=== PATIENT | female | born 1980 | race Caucasian/White ===

== ENCOUNTER 2021-05-04 16:43 | Emergency (ER) | payer OTHER, SELFPAY ==
--- NOTE | ~2021-05-04 | CT_ITS ---
EXAMINATION: CT thoracic lumbar wo con DATE: 05/04/2021 19:26 INDICATION: Back pain, paresthesia TECHNIQUE: Computed tomography (CT) of the thoracic and lumbar spine was performed without intravenou s contrast. Automated exposure control and iterative reconstruction technique were employed. Exam dos e: 1482.35 mGy-cm total exam DLP. COMPARISON: None FINDINGS: Mild dextroscoliosis of the thoracic spine. Normal alignment of the thoracic spine. No thor acic spine fracture or bone destruction. There is mild levoscoliosis of the lumbar spine. No fracture or bone destruction, spondylolysis or spondylolisthesis. Lumbar and lumbosacral interspac es are well preserved. Bilateral nephrocalcinosis of the kidneys. IMPRESSION: Mild scoliosis of the thoracic and lumbar spine Bilateral nephrocalcinosis Reviewed, dictated and finalized at [facility]. Reviewed, dictated and finalized at [facility]. 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
[2021-05-04 16:54] VITALS: BP 148/90; PULSE 77; RESP 18; TEMP 37.5; O2SAT 100
--- NOTE | 2021-05-04 18:47 | ED.BACK ---
HPI - Back Pain/Injury General Chief Complaint: Back Pain/Injury Stated Complaint: low back pain Time Seen by Provider: 05/04/21 18:36 Source: patient Mode of arrival: ambulatory Limitations: no limitations History of Present Illness HPI Narrative: This is a 40 year old female that presents to the ER for low back pain present over the last couple of days. Reports chronic mid back pain. Reports no known injury or trauma. Reports over the last couple of days she has had pain in the low back which is new for her which prompted her to be seen. She reports she has had paresthesias in her right arm for about a year. She has not been seen for her back pain before. Denies fever, saddle anesthesia, or bowel/bladder incontinence. Related Data Home Medications Medication Instructions Recorded Confirmed atenolol 25 mg PO BID 05/04/21 hydralazine 50 mg PO DAILY 05/04/21 05/04/21 Allergies Allergy/AdvReac Type Severity Reaction Status Date / Time latex Allergy Unknown Rash Verified 05/04/21 19:04 nicotine AdvReac Mild Rash=Patch Verified 05/04/21 19:04 Review of Systems Review of Systems: CONSTITUTIONAL: Denies fever SKIN: Denies rash MUSCULOSKELETAL: Reports back pain, joint pain, and myalgia. NEUROLOGIC: Denies numbness, or weakness. All systems reviewed & are unremarkable except as noted in HPI and below PMFSH Past Medical History Medical History (Updated 05/04/21 @ 20:22 by Marley Duke PA-C) History of hypertension Social History Social History (Updated 05/04/21 @ 18:50 by Marley Duke PA-C) Substance use: never Exam Narrative: GENERAL: Well-appearing, well-nourished, and in no acute distress. HEAD: Normocephalic, atraumatic. EYES: EOMI. CHEST: Clear to auscultation. No respiratory distress. No wheezes rales or rhonchi HEART: Regular rate and rhythm. No murmur heard. Normal peripheral pulses. BACK: No midline thoracic or lumbar spine tenderness EXTREMITIES: Normal range of motion. No edema. Strength equal in bilateral upper and lower extremities (5/5) SKIN: Warm, dry, no rash. NEURO: No focal deficits. Alert and oriented x3. Normal patellar reflexes bilaterally PSYCH: Normal mood and affect Course Vital Signs Vital signs: Vital Signs Temperature 99.5 F 05/04/21 16:54 Pulse Rate 77 05/04/21 16:54 Respiratory Rate 18 05/04/21 16:54 Blood Pressure 148/90 H 05/04/21 16:54 Pulse Oximetry 100 05/04/21 16:54 Temperature 99.5 F 05/04/21 16:54 Pulse Rate 77 05/04/21 16:54 Respiratory Rate 18 05/04/21 16:54 Blood Pressure 148/90 H 05/04/21 16:54 Pulse Oximetry 100 05/04/21 16:54 MDM - Back Pain/Injury MDM Narrative Medical decision making narrative: Patient presents to the ER for chronic mid back pain and new low back pain. No known injuries or trauma. Patient is neurologically intact. CT scan of the thoracic and lumbar spine shows mild scoliosis. No acute findings. Patient was updated on case findings. Reports improvement with Tylenol and Toradol. Will be given muscle relaxer as well as needed for pain. She was instructed to have follow-up with a primary care doctor as well as orthopedics. She was given warnings to return to the ER Imaging Data Radiologist's impression: ITS Impressions Thoracic/Lumbar Spine CT 05/04/21 19:50 IMPRESSION: Mild scoliosis of the thoracic and lumbar spine Bilateral nephrocalcinosis Critical Care Time Critical Care Time Critical Care Time: No Discharge Plan Discharge Clinical Impression: Back pain Qualifiers: Back pain location: low back pain Chronicity: acute Back pain laterality: midline Sciatica presence: without sciatica Qualified Code(s): M54.50 - Low back pain, unspecified Patient Disposition: Home, Self-Care Condition: Stable Instructions: Back Pain (ED) Additional Instructions: Return to the ER if you experience weakness, numbness, bowel/bladder incontinence, or any other symp
[2021-05-04] MEDS: ACETAMINOPHEN 500 MG TABLET 1000 MG PO (18:53)
[2021-05-04] MEDS: KETOROLAC (*BKC) 60 MG/2 ML VIAL IM (18:57)
--- NOTE | 2021-05-04 19:01 | PC.NURSE ---
patient states that she had a tubal ligation and can no longer have children. refuses test. PA aware
[2021-05-04 20:28] VITALS: BP 120/80; PULSE 68; RESP 18; TEMP 36.9; O2SAT 98
== END 2021-05-04 20:34 | disposition home or self-care (01) ==
PROVIDERS: Emergency Provider Family Medicine
DX: M54.50 Low back pain, unspecified (principal); I10 Essential (primary) hypertension; E83.59 Other disorders of calcium metabolism; N29 Other disorders of kidney and ureter in diseases classified elsewhere; M41.9 Scoliosis, unspecified
CPT/HCPCS: 72128; 72131; 96372; 99284; A9270; J1885

== ENCOUNTER 2022-02-04 15:29 | Emergency (ER) | payer OTHER, SELFPAY ==
--- NOTE | ~2022-02-04 | XR_ITS ---
EXAM: XR knee LT min 4V DATE: 02/04/2022 17:10 HISTORY: fell down stairs, landed on knee, unable to bend . COMPARISON: None available. FINDINGS: Decreased mineralization. Cortical irregularity along the anterior and medial aspect of th e medial femoral condyle and patellar groove. High positioned patella. No lytic or blastic lesion. Tr icompartmental osteoarthritic change, moderate in the medial compartment. No erosion or periosteal ch harsh. Soft tissue thickening and stranding over the patellar tendon. Moderate volume joint fluid. IMPRESSION: Impaction fracture versus fracture from possible patellar dislocation (now relocated). At least partial thickness patellar tendon injury is suspected. Moderate volume joint effusion. Reviewed, dictated and finalized at [facility]. IMPRESSION: Impaction fracture versus fracture from possible patellar dislocati on (now relocated). At least partial thickness patellar tendon injury is suspec sincere. Moderate volume joint effusion.
[2022-02-04 16:55] VITALS: BP 134/97; PULSE 88; RESP 16; TEMP 36.3; O2SAT 100
--- NOTE | 2022-02-04 18:29 | ED.LOWEXIN ---
HPI - Extremity Injury (Lower) General Chief Complaint: Extremity Injury, Lower Stated Complaint: Fall Injury/Left Leg Injury Time Seen by Provider: 02/04/22 18:15 Source: patient, RN notes reviewed and old records reviewed Mode of arrival: wheelchair Limitations: no limitations History of Present Illness HPI Narrative: 41 year old female who presets to express care with complaints of left knee pain after falling down 7 carpeted steps last night while carrying her her child. Patient states that left leg went behind her and now her left knee is swollen and she has difficulty applying weight to her left leg and increased pain with movement of left knee. MD complaint: knee injury (left) Onset (ago): hour(s) (last night about 0200) Injury: Left: knee Type of Injury: other (fall) Treatments prior to arrival: cold therapy and other (tylenol) Related Data Home Medications Medication Instructions Recorded Confirmed atenolol 25 mg tablet 25 mg PO BID 05/04/21 02/09/22 cholecalciferol (vitamin D3) 10 10 mcg PO DAILY 02/04/22 02/09/22 mcg (400 unit) tablet (Vitamin D3) sertraline 25 mg tablet 50 mg PO DAILY 02/04/22 02/09/22 Allergies Allergy/AdvReac Type Severity Reaction Status Date / Time latex Allergy Unknown Rash Verified 02/09/22 09:55 nicotine AdvReac Mild Rash=Patch Verified 02/09/22 09:55 Review of Systems Review of Systems: CONSTITUTIONAL: Denies fever, chills, or sweats. CARDIOVASCULAR: Denies chest pain, palpitations, or edema. RESPIRATORY: Denies cough or dyspnea. SKIN: Denies rash or itching. Denies laceration or abrasions MUSCULOSKELETAL: Reports pain AND SWELLING TO LEFT KNEE and inability to bear weight NEUROLOGIC: Denies numbness, or weakness. All systems reviewed & are unremarkable except as noted in HPI and below [facility] Past Medical History Medical History (Updated 02/11/22 @ 11:21 by Carol Mcdaniel NP) Anxiety and depression History of hypertension Knee pain, acute Left knee injury Social History Social History Smoking status: Never smoker Alcohol intake: current Substance use type: does not use Living arrangements: with family Gender identity (if verbalized by the patient): Female Comments At time of signature, agree with nursing past medical, surgical, social and family history. There is no relevant family history pertinent to the presenting complaint Exam Narrative: GENERAL: Well-appearing, well-nourished, and in no acute distress. HEAD: Normocephalic, atraumatic. EYES: PERRLA, conjunctivae clear NECK: Supple. CHEST: Speaks in full sentences. No respiratory distress.SAO2 100% on room air HEART: Regular rate and rhythm. Normal and equal peripheral pulses. EXTREMITIES:Left knee has decreased strength and normal sensation, decreased range of motion positive edema no ecchymosis. decreased strength with impaired flexion and extension. Normal sensation with sensitivity to light touch and pain. point tenderness.? ?No open wounds, no skin tenting, no devitalized tissue or atrophy, no trophic changes, no obvious deformity, alignment normal, nearby joints and structures intact. Distal pulses palpable and equal bilaterally, skin warm, dry, pink. Capillary refill less than 3 seconds. Course Course Emergency Course: Patient is aware of diagnosis, understands and agrees to treatment plan. Anticipatory guidance given. Patient agrees to follow-up as directed and is aware of reasons to seek care at the emergency department. Portions of this record may have been created with voice recognition software Level of Care: Express Care Visit Vital Signs Vital signs: Vital Signs Temperature 36.3 C L 02/04/22 16:55 Pulse Rate 88 02/04/22 16:55 Respiratory Rate 16 02/04/22 16:55 Blood Pressure 134/97 H 02/04/22 16:55 Pulse Oximetry 100 02/04/22 16:55 Oxygen Delivery Room Air 02/04/22 16:55 Temperature 36.
== END 2022-02-04 18:53 | disposition home or self-care (01) ==
PROVIDERS: Emergency Provider Registered Nurse
DX: M25.562 Pain in left knee (principal); I10 Essential (primary) hypertension
CPT/HCPCS: 73564; 99213; G0463; L1830

== ENCOUNTER 2022-03-03 14:01 | Outpatient (CLI) | payer OTHER, SELFPAY ==
--- NOTE | ~2022-03-03 | MR_ITS ---
EXAMINATION: MR knee LT wo con DATE: 03/03/2022 14:50 INDICATION: Left knee injury. TECHNIQUE: Magnetic resonance imaging (MRI) of the left knee was performed without intravenous contra st. COMPARISON: Left knee radiographs 02/04/2022 FINDINGS: Medial compartment: Medial meniscus is normal. Medial compartment cartilage is normal. Lateral compartment: Lateral meniscus is normal. Lateral compartment cartilage is normal. Patellofemoral compartment: There is deep partial thickness cartilage loss of patellar lateral facet distally with mild subchondr al edema-like marrow signal intensity. There is shallow partial-thickness cartilage loss of trochlea. Osteophytes are noted. Ligaments and tendons: The anterior cruciate ligament is normal. There is a tear of posterior cruciate ligament characterize d by thickening and increased signal intensity with discontinuous fibers. There is a partial tear of medial collateral ligament with surrounding edema. There are changes of low-grade sprain of fibular c ollateral ligament characterized by increased signal intensity proximally. There is mild patellar ten dinopathy. Fluid: There is a moderate-sized knee joint effusion. There is mild superficial infrapatellar bursitis. Osseous/other: There is edema-like marrow signal intensity involving posterolateral aspect of lateral femoral condyl e. There is edema-like marrow signal intensity involving medial aspect of medial tibial condyle. Thes e findings are consistent with contusions. IMPRESSION: 1. Tear of posterior cruciate ligament. 2. Moderate chondrosis of patellofemoral compartment. 3. Moderate-sized knee joint effusion. 4. Partial tear of medial collateral ligament. 5. Contusions involving the posterolateral aspect of lateral femoral condyle and medial aspect of med ial tibial condyle. Reviewed, dictated and finalized at location [facility]. [employer] IMPRESSION: 1. Tear of posterior cruciate ligament. 2. Moderate chondrosis of patellofemoral compartment. 3. Moderate-sized knee joint effusion. 4. Partial tear of medial collateral ligament. 5. Contusions involving the posterolateral aspect of lateral femoral condyle an d medial aspect of medial tibial condyle.
== END 2022-03-03 14:02 | disposition home or self-care (01) ==
LOC: ANHIMG 14:05
PROVIDERS: Visit Provider Orthopaedic Surgery
DX: S89.92XA Unspecified injury of left lower leg, initial encounter (principal); S83.522A Sprain of posterior cruciate ligament of left knee, initial encounter; M22.2X2 Patellofemoral disorders, left knee; M25.462 Effusion, left knee; S83.412A Sprain of medial collateral ligament of left knee, initial encounter; S80.02XA Contusion of left knee, initial encounter
CPT/HCPCS: 73721

== ENCOUNTER 2022-07-31 20:06 | Emergency (ER) | payer OTHER, SELFPAY ==
--- NOTE | ~2022-07-31 | CT_ITS ---
EXAMINATION: CT abdomen pelvis w con DATE: 07/31/2022 22:30 INDICATION: rule out obstruction TECHNIQUE: Computed tomography (CT) of the abdomen and pelvis was performed with 100 mL Omnipaque-350 intravenous contrast. Automated exposure control and iterative reconstruction technique were employe d. The dose-length product was 972.26 mGy-cm. COMPARISON: None. FINDINGS: Lower thorax: Mild coronary artery calcification. Liver: Normal. Biliary/Gallbladder: Gallbladder is normal. No bile duct dilation. Pancreas: No mass or duct dilation. Spleen: Normal. Adrenals:No mass. Kidneys: 6 mm calcification at the left UPJ. Mild left pelviectasis and caliectasis. Bilateral medull fatmata nephrocalcinosis. Multiple nonobstructing punctate calcifications projecting over the bilateral r enal calyces. Simple bilateral midpole cysts. Several right renal hypodensities that are too small to characterize but also most likely represent cysts. GI tract: Mild distal esophageal and gastric wall edema, as can be seen with mild esophagitis/gastrit is. No small or large bowel dilation. Normal appendix. Diverticulosis without diverticulitis. Mesentery/Peritoneum: No ascites, mass, or free air. Retroperitoneum: No mass. Pelvis: Retroverted uterus. Empty urinary bladder. Normal bilateral ovaries. Soft Tissues: Soft tissues and body wall unremarkable. Bones: No acute osseous finding. IMPRESSION: 6 mm left UPJ stone causing mild obstructive uropathy. Reviewed, dictated and finalized at [facility].
[2022-07-31 20:28] VITALS: BP 170/101; PULSE 98; RESP 20; TEMP 36.7; O2SAT 99
[2022-07-31 21:36] VITALS: BP 167/100; PULSE 94; RESP 22; O2SAT 100
[2022-07-31 21:54] LABS: Appearance Urine Cloudy (Clear); Bacteria Urine 1+ /hpf; Bilirubin Urine Negative (Negative); Blood Urine 3+ (Negative); Color Urine Dark Yellow (Yellow); Glucose Urine UA Negative (Negative); Ketones Urine Negative (Negative); Leukocyte Esterase Ur 2+ LEU/UL (Negative); Nitrate Urine Negative (Negative); Non Pathogenic Casts 0-2; Protein Urine 1+ mg/dL (Negative); RBC Urine >100 /hpf (0-2); Specific Grav Ur 1.014 (1.001-1.035); Squamous Epithelial Cell Urine Occasional /hpf (Few); Urobilinogen Urine 0.2 mg/dL (<2.0); WBC Urine 21-50 /hpf; pH Urine 6.5 (5.0-9.0)
[2022-07-31 21:58] LABS: Add Urine Microscopic? YES; Basophils Absolute Auto 0.1 K/mm3 (0.0-0.1); Basophils Percent Auto 0.7 % (0.2-1.2); Eosinophils Absolute Auto 0.1 K/mm3 (0-0.3); Hematocrit 34.8 % (37.0-47.0); Hemoglobin 10.6 g/dL (12.0-15.0); Immature Granulocyte Absolute 0.03 K/mm3 (0.00-0.031); Immature Granulocyte Percent A 0.3 % (0-0.5); Lymphocytes Absolute Auto 1.69 K/mm3 (0.9-3.2); Lymphocytes Percent Auto 15.8 % (18.3-44.2); Mean Corpuscular HGB Conc 30.5 g/dl (32-36); Mean Corpuscular Hemoglobin 23.5 pg (26-34); Mean Corpuscular Volume 77.2 fl (80-100); Mean Platelet Volume 10.5 fl (7.4-10.4); Monocytes Absolute Auto 1.2 K/mm3 (0.1-0.6); Monocytes Percent Auto 11.2 % (2.6-8.5); Neutrophils Absolute Auto 7.6 K/mm3 (1.3-6.7); Platelet Count Result 374 k/mm3 (150-375); Red Blood Count 4.51 M/mm3 (4.2-5.4); Red Cell Distribution Width 16.2 % (11.5-14.5); White Blood Count 10.7 K/mm3 (4.5-10.0)
[2022-07-31 22:00] LABS: Alanine Aminotransferase 20 U/L (6-35); Albumin Level 4.8 g/dL (3.5-5.1); Alkaline Phosphatase 74 U/L (38-126); Anion Gap 10 mmol/L (8-16); Aspartate Amino Transferase 31 U/L (14-36); Bilirubin,Total 0.6 mg/dL (0.2-1.3); Blood Urea Nitrogen 16 mg/dL (7-17); Calcium 9.1 mg/dL (8.4-10.2); Carbon Dioxide 23 mmol/L (22-30); Chloride 106 mmol/L (98-107); Estimated CRCL calculation 68 ml/min; Estimated Glomerular Filt Rate > 60; Glucose 96 mg/dL (65-110); Lipase 45 U/L (23-300); Potassium 3.9 mmol/L (3.4-5.0); Sodium 139 mmol/L (137-145)
[2022-07-31 22:16] VITALS: BP 170/113; PULSE 99; RESP 20; O2SAT 100
--- NOTE | 2022-07-31 22:18 | ED.ABDPAIN ---
HPI - Abdominal Pain General Chief Complaint: Abdominal Pain Stated Complaint: abd pain Time Seen by Provider: 07/31/22 22:08 Source: patient Mode of arrival: ambulatory Limitations: no limitations History of Present Illness HPI narrative: This is a 42-year-old female with PMH of who presents to the ED with chief complaint of left-sided abdominal pain onset x1 day. Reports pain is in the left upper quadrant and shoots backwards into the left flank. Also reports some radiating pain down into the left lower quadrant. Reports hematuria and frequency. States she has had 5 episodes of vomiting today. States she is still nauseous. States her last bowel movement was 5 days ago which is abnormal for her. Denies fevers, chills, chest pain, shortness of breath, cough. Related Data Home Medications Medication Instructions Recorded Confirmed atenolol 25 mg tablet 25 mg PO BID 05/04/21 03/06/22 cholecalciferol (vitamin D3) 10 10 mcg PO DAILY 02/04/22 03/06/22 mcg (400 unit) tablet (Vitamin D3) sertraline 25 mg tablet 50 mg PO DAILY 02/04/22 03/06/22 Allergies Allergy/AdvReac Type Severity Reaction Status Date / Time latex Allergy Unknown Rash Verified 07/31/22 21:49 nicotine AdvReac Mild Rash=Patch Verified 07/31/22 21:49 Review of Systems Review of Systems: CONSTITUTIONAL: Denies fever, chills, or sweats. EYES: Denies visual changes, redness, or discharge. ENT: Denies rhinorrhea, congestion, sore throat, or otalgia. CARDIOVASCULAR: Denies chest pain, palpitations, or edema. RESPIRATORY: Denies cough or dyspnea. GASTROINTESTINAL: See HPI GENITOURINARY: Denies dysuria or hematuria. SKIN: Denies rash or itching. MUSCULOSKELETAL: Denies back pain, joint pain, or myalgia. NEUROLOGIC: Denies headache, numbness, dizziness, or weakness. PSYCHIATRIC: Denies anxiety or depression. [facility] Past Medical History Medical History (Updated 08/01/22 @ 00:09 by Abhi Little PA-C) Anxiety and depression Calculus of proximal left ureter Chronic headaches Claustrophobia History of hypertension IBS (irritable bowel syndrome) Knee pain, acute Left knee injury Tachycardia Surgical History Surgical History H/O section Family History Family History Other Arthritis Asthma Cerebrovascular accident Depression Diabetes mellitus HLD (hyperlipidemia) Heart disease Hypertension Social History Social History Smoking status: Former smoker Tobacco type: cigarettes Smoking end date: 06/10/21 Alcohol intake: never Substance use type: does not use Current Housing: Decline to Answer Concerned About Future Housing: Decline to Answer Difficulty Paying Gas/Electric Bills: Decline to Answer Difficulty Paying for Meds: Decline to Answer Currently Unemployed: Decline to Answer Education: Decline to Answer Difficulty w/ Childcare or Family Care: Decline to Answer Living arrangements: with family Occupation/Education: occupation Gender identity (if verbalized by the patient): Female Exam Narrative: GENERAL: Writhing in bed, appears in pain. HEAD: Normocephalic, atraumatic. EYES: PERRLA and EOMI. ENT: Nares clear, no rhinorrhea or epistaxis. Mucous membranes moist. Oropharynx without tonsillar hypertrophy exudate or other lesions. NECK: Supple. No adenopathy or masses. CHEST: No respiratory distress. Clear to auscultation. No wheezes rales or rhonchi HEART: Regular rate and rhythm. No murmur heard. Normal peripheral pulses. ABDOMEN: Left flank tenderness present. Mild left lower quadrant tenderness present. Soft, nondistended, normal active bowel sounds. Negative peritoneal signs. EXTREMITIES: Normal range of motion. No edema. SKIN: Warm, dry, no rash. NEURO: Alert and oriented x3. No focal deficits. PSYCH: Normal mood
[2022-07-31 22:38] VITALS: PULSE 98; RESP 20; O2SAT 100
[2022-07-31] MEDS: ONDANSETRON INJ 4 MG/2 ML VIAL IV PUSH (22:40)
[2022-07-31] MEDS: SODIUM CHLORIDE 0.9% IV 1,000 ML 999 ML IV CONT (22:40)
[2022-07-31] MEDS: MORPHINE SULFATE (*CRX) 4 MG/ML INJ IV PUSH (22:41)
[2022-07-31 22:52] VITALS: PULSE 99; RESP 17; O2SAT 99
--- NOTE | 2022-07-31 23:11 | PC.NURSE ---
Report given to ZACKERY Persaud at this time.
--- NOTE | 2022-07-31 23:17 | PC.NURSE ---
Report given to ZACKERY Persaud at this time.
[2022-08-01] MEDS: ONDANSETRON INJ 4 MG/2 ML VIAL IV PUSH (00:10)
[2022-08-01 00:38] VITALS: BP 144/95; PULSE 94; RESP 19; O2SAT 99
== END 2022-08-01 00:40 | disposition home or self-care (01) ==
PROVIDERS: Emergency Provider Physician Assistant
DX: N20.1 Calculus of ureter (principal); F41.9 Anxiety disorder, unspecified; F32.A Depression, unspecified; I10 Essential (primary) hypertension
CPT/HCPCS: 36415; 74177; 80053; 81001; 81025; 83690; 85025; 87086; 96361; 96374; 96375; 99284; J0131; J2270; J2405; J7030; Q9967

== ENCOUNTER 2022-08-18 20:09 | Inpatient (IN) | payer OTHER, SELFPAY ==
--- NOTE | ~2022-08-18 | CT_ITS ---
EXAMINATION: CT abdomen pelvis w con DATE: 08/18/2022 21:50 INDICATION: Generalized abdominal pain. TECHNIQUE: Computed tomography (CT) of the abdomen and pelvis was performed with 100 mL Omnipaque 350 intravenous contrast. Automated exposure control and iterative reconstruction technique were employe d. The dose-length product was 906.70 mGy-cm. COMPARISON: CT abdomen and pelvis 07/31/2022, thoracic spine CT 05/04/2021 FINDINGS: The visualized portions of the lung bases are clear without pneumonia or pleural effusion. The heart size is normal. There are coronary artery calcifications. No pericardial effusion. There is a chronic 4.2 x 3.2 cm cyst posterior to the heart on the left abutting the esophagus, which may be a pericardial cyst or foregut duplication cyst. The liver is normal. The gallbladder is distended, wh ich may be secondary to fasting. The spleen, pancreas, and adrenal glands are normal. There are cysts in the kidneys measuring up to 1.5 cm on the left. There is bilateral medullary nephrocalcinosis. Th ere are stones in the kidneys measuring up to 5 mm on the right. There is mild left hydronephrosis. T here are 4 mm and 3 mm stones in proximal left ureter. There is a 2.5 cm dominant follicle in left ov fatmata. There is fat stranding around a diverticulum of sigmoid colon, consistent with diverticulitis. T here are no dilated loops of bowel. The appendix is normal. There are no pathologically enlarged lymp h nodes. There is no free intraperitoneal fluid. There is mild thoracic and lumbar spondylosis. IMPRESSION: 1. Sigmoid diverticulitis. No perforation or abscess. 2. 4 mm and 3 mm stones in proximal left ureter with mild left hydronephrosis. 3. Bilateral medullary nephrocalcinosis and bilateral nonobstructing kidney stones. Reviewed, dictated and finalized at location E. IMPRESSION: 1. Sigmoid diverticulitis. No perforation or abscess. 2. 4 mm and 3 mm stones in proximal left ureter with mild left hydronephrosis. 3. Bilateral medullary nephrocalcinosis and bilateral nonobstructing kidney sto ed.
--- NOTE | ~2022-08-18 | XR_ITS ---
EXAMINATION: XR stent kub - surgery DATE: 08/19/2022 10:03 INDICATION: Left ureteral stent placement TECHNIQUE: Fluoroscopic images from a left ureteral stent placement are submitted for review. 32 seco nds of fluoroscopy time. FINDINGS: There is a left double-J internal ureteral stent projecting in expected position, with proximal Lee loop at the level of the renal pelvis and distal loop not visualized. IMPRESSION: 1. Left internal ureteral stent placement. Please refer to real-time procedural findings for detail s. Reviewed, dictated and finalized at location A. IMPRESSION: 1. Left internal ureteral stent placement. Please refer to real-time procedur al findings for details.
--- NOTE | ~2022-08-18 | XR_ITS ---
EXAMINATION: XR chest 1V portable Exam Date/Time: 08/20/2022 14:45 CDT HISTORY: shortness of breath Comparison: 09/01/2018. RESULT: Lines, tubes, and devices: None. Lungs and pleura: Lordotic positioning. Streaky bibasilar opacities, likely atelectasis. Cardiomediastinal silhouette: Stable. Other: No acute osseous or upper abdominal finding. IMPRESSION: No acute cardiopulmonary process. Reviewed, dictated and finalized at location K.
[2022-08-18 20:31] VITALS: BP 142/90; PULSE 107; RESP 22; TEMP 37.1; O2SAT 100
[2022-08-18 20:48] VITALS: BP 164/107; PULSE 110; RESP 24; TEMP 37.3; O2SAT 99
--- NOTE | 2022-08-18 21:15 | ED.ABDPAIN ---
HPI - Abdominal Pain General Chief Complaint: Abdominal Pain <RASHAWN Solis Last Filed: 08/19/22 04:12> Stated Complaint: left flank and leg pain <RASHAWN Solis Last Filed: 08/19/22 04:12> Time Seen by Provider: 08/18/22 20:52 <Ximena Clarke PA-C - Last Filed: 08/19/22 04:12> History of Present Illness HPI narrative: 42-year-old female with a history of ureterolithiasis reports for evaluation of bilateral flank pain and generalized abdominal pain, worse on the left side for 2 weeks, worsening today. Patient was evaluated in the ED on 08/01 and diagnosed with a 6 mm left UPJ stone causing mild obstructive uropathy. The patient was discharged home with Flomax, Zofran and cefdinir for potentially infected urine, cultures were negative. Patient was advised to follow-up with urology, however she was unable to make an appointment because was told they do not accept her insurance. She states she has been drinking plenty of fluids along with cranberry juice since. States today her pain became much worse, she developed a fever of 103 with associated nausea. She denies vomiting, diarrhea, hematuria or dysuria. <RASHAWN Solis Last Filed: 08/19/22 04:12> Related Data Home Medications: Home Medications Medication Instructions Recorded Confirmed cholecalciferol (vitamin D3) 10 10 mcg PO DAILY 02/04/22 08/19/22 mcg (400 unit) tablet (Vitamin D3) sertraline 25 mg tablet 50 mg PO DAILY 02/04/22 08/19/22 cyclobenzaprine 10 mg tablet 10 mg PO TID 08/19/22 08/19/22 <RASHAWN Solis Last Filed: 08/19/22 04:12> Allergies/Adverse Reactions: Allergies Allergy/AdvReac Type Severity Reaction Status Date / Time latex Allergy Unknown Rash Verified 07/31/22 21:49 nicotine AdvReac Mild Rash=Patch Verified 07/31/22 21:49 <RASHAWN Solis Last Filed: 08/19/22 04:12> Review of Systems Review of Systems: CONSTITUTIONAL: Denies fever, chills EYES: Denies visual changes, redness, or discharge. ENT: Denies rhinorrhea, congestion, sore throat, or otalgia. CARDIOVASCULAR: Denies chest pain, palpitations, or edema. RESPIRATORY: Denies cough or dyspnea. GASTROINTESTINAL: See HPI GENITOURINARY: See HPI SKIN: Denies rash or itching. MUSCULOSKELETAL: See HPI NEUROLOGIC: Denies headache, numbness, dizziness, or weakness. PSYCHIATRIC: Denies anxiety or depression. <Ximena Clarke PA-C - Last Filed: 08/19/22 04:12> [facility] Past Medical History Medical History: Medical History (Updated 08/21/22 @ 14:49 by MOISES Tyson) Anxiety and depression Calculus of proximal left ureter Chronic headaches Claustrophobia Essential hypertension Irritable bowel syndrome with constipation Ischemic colitis (~2011) Left knee injury Tachycardia Tear of PCL (posterior cruciate ligament) of knee <Ximena Clarke PA-C - Last Filed: 08/19/22 04:12> Surgical History Surgical History: Surgical History H/O section <Ximena Clarke PA-C - Last Filed: 08/19/22 04:12> Family History Family History: Family History Grandparent Arthritis Heart disease Hypertension Mother , At age 52 Cerebrovascular accident, Onset Age: 52 Depression HLD (hyperlipidemia) Alcoholism Father , 72 years old Depression COPD (chronic obstructive pulmonary disease) COVID-19 Other Diabetes mellitus <Ximena Clarke PA-C - Last Filed: 08/19/22 04:12> Social History Social History: Social History Social History: She lives at home with her for younger children. She has 2 children age 20 and 19 and a moved out. She used to smoke a pack of cigarettes per day. She started smoking at age 13 and quit smoking in 2020. She only drinks alcohol about once a yea
[2022-08-18 21:18] LABS: Basophils Absolute Auto 0.1 K/mm3 (0.0-0.1); Basophils Percent Auto 0.4 % (0.2-1.2); Hemoglobin 10.2 g/dL (12.0-15.0); Immature Granulocyte Absolute 0.12 K/mm3 (0.00-0.031); Immature Granulocyte Percent A 0.5 % (0-0.5); Lymphocytes Absolute Auto 1.25 K/mm3 (0.9-3.2); Lymphocytes Percent Auto 5.6 % (18.3-44.2); Mean Corpuscular HGB Conc 30.9 g/dl (32-36); Mean Corpuscular Hemoglobin 23.8 pg (26-34); Mean Corpuscular Volume 77.1 fl (80-100); Monocytes Absolute Auto 1.9 K/mm3 (0.1-0.6); Monocytes Percent Auto 8.7 % (2.6-8.5); Neutrophils Absolute Auto 18.8 K/mm3 (1.3-6.7); Neutrophils Percent Auto 84.8 % (45.5-73.1); Platelet Count Result 337 k/mm3 (150-375); Red Blood Count 4.28 M/mm3 (4.2-5.4); Red Cell Distribution Width 16.9 % (11.5-14.5); White Blood Count 22.2 K/mm3 (4.5-10.0)
[2022-08-18 21:21] LABS: Appearance Urine Clear (Clear); Bacteria Urine None Seen /hpf; Bilirubin Urine Negative (Negative); Color Urine Yellow (Yellow); Glucose Urine UA Negative (Negative); Ketones Urine Negative (Negative); Leukocyte Esterase Ur Trace LEU/UL (Negative); Nitrate Urine Negative (Negative); Non Pathogenic Casts 0-2; Protein Urine Negative (Negative); Specific Grav Ur 1.012 (1.001-1.035); Squamous Epithelial Cell Urine None seen /hpf (Few); Urobilinogen Urine 0.2 mg/dL (<2.0); pH Urine 6.5 (5.0-9.0)
[2022-08-18 21:25] LABS: Add Urine Microscopic? YES
[2022-08-18] MEDS: SODIUM CHLORIDE 0.9% IV 1,000 ML 999 ML IV CONT ×2 (21:26→22:41)
[2022-08-18] MEDS: ONDANSETRON INJ 4 MG/2 ML VIAL IV PUSH (21:28)
[2022-08-18] MEDS: MORPHINE SULFATE (*CRX) 4 MG/ML INJ IV PUSH (21:29)
[2022-08-18 21:36] LABS: Albumin Level 4.8 g/dL (3.5-5.1); Alkaline Phosphatase 65 U/L (38-126); Anion Gap 12 mmol/L (8-16); Aspartate Amino Transferase 32 U/L (14-36); Bilirubin,Total 0.6 mg/dL (0.2-1.3); Blood Urea Nitrogen 14 mg/dL (7-17); Calcium 8.9 mg/dL (8.4-10.2); Carbon Dioxide 19 mmol/L (22-30); Chloride 103 mmol/L (98-107); Estimated Glomerular Filt Rate > 60; Glucose 130 mg/dL (65-110); Lipase 30 U/L (23-300); Potassium 4.2 mmol/L (3.4-5.0); Sodium 134 mmol/L (137-145)
[2022-08-18 21:44] LABS: Lactic Acid Reflex 2.9 mmol/L (0.7-2.0)
[2022-08-18 21:47] LABS: Alanine Aminotransferase 38 U/L (6-35)
[2022-08-18] MEDS: PIPERACILLN/TAZ 3.375GM/NS50ML 3.375 GM/50 ML BAG IVPB (22:25)
[2022-08-18] MEDS: HYDROmorphone HCL INJ (*CRX) 1 MG/ML SYR 0.5 MG IV PUSH (22:42)
[2022-08-18 22:45] VITALS: BP 133/74; PULSE 107; RESP 20; O2SAT 100
[2022-08-18 23:09] VITALS: BP 116/63; PULSE 109; RESP 17; O2SAT 96
[2022-08-19] VITALS (23 sets, daily range): BP systolic 102–137; BP diastolic 60–85; PULSE 80–118; RESP 14–20; TEMP 36.4–37.2; O2SAT 93–100; BMI 33.3
[2022-08-19] MEDS: ACETAMINOPHEN 325 MG TABLET 650 MG PO (00:08)
--- NOTE | 2022-08-19 00:19 | ADMGEN ---
This patient, Jannette John, was admitted to 2 Medical Room 240-. Patient/family oriented to hospital policies and general routines including ID bracelet, bed and alarms, visiting hours, pain management, procedures, bathroom and other care routines, personal items, smoking policy, room service/diet, and visiting hours. Information on how to activate the Rapid Response Team has been discussed. Patient/Family are encouraged to report perceived risks to care and to ask questions if they do not understand what they are told or what they should do.
[2022-08-19 00:33] LABS: Reflex Lactic Acid Yes or No Add Lactic
[2022-08-19] MEDS: SODIUM CHLORIDE 0.9% IV 1,000 ML 999 ML IV CONT (00:53)
[2022-08-19] MEDS: ONDANSETRON INJ 4 MG/2 ML VIAL IV PUSH ×4 (00:55→20:04)
[2022-08-19] MEDS: HYDROmorphone HCL INJ (*CRX) 1 MG/ML SYR IV PUSH ×7 (00:56→23:15)
[2022-08-19 01:23] LABS: Lactic Acid 0.9 mmol/L (0.7-2.0)
[2022-08-19] MEDS: SODIUM CHLORIDE 0.9% IV 1,000 ML 150 ML IV CONT (02:46)
--- NOTE | 2022-08-19 03:53 | PM.IMHP ---
H&P: HPI History of Present Illness Date/Time: 08/19/22 03:53 Chief Complaint: Abdominal pain Narrative: 42-year-old female with a past medical history of obesity, hypertension, kidney stones and asthma who presented to the ER with abdominal pain. The patient had originally presented to the ER on 07/31/2022 due to left-sided abdominal pain and radiated up to left upper quadrant and left flank. The pain was sharp stabbing and twisting in nature. She had a CT of the abdomen pelvis without contrast at that time which demonstrated 6 mm left UPJ stone causing obstructive uropathy. She was discharged on antibiotics, Flomax and [place]. She was unable to follow-up with Urology as they do not accept her insurance. She reports that her symptoms did give better while on the medications. She did not need to take all of the [place] and she had some of it left. However she still was having some decreased appetite, and nausea. She was still have occasional episodes of left upper quadrant pain radiating to her back. Several days ago she did have couple episodes of vomiting. She denies any hematemesis. Then 2 days ago she began having discomfort in her bladder right after she would finish voiding. She felt as if her bladder was cramping. However she denied her usual symptoms she would get with a UTI such as, urinary frequency urgency or dysuria. She did have significant left CVA tenderness on exam in the ER she was still drinking plenty of fluids and cranberry juice. She reported that on the she spiked a fever to 103. She had associated worsening nausea. She also had developed new left lower quadrant abdominal. She reports that that pain is more of a dull achy sensation. It is worse with palpation of the left lower abdomen. It is constant in nature. It is severe in intensity. She has also had acute worsening of her left upper quadrant pain. She reports that the pain in the left lower quadrant also radiates down into her anterior thigh. She reports that she does have chronic irritable bowel disease with constipation and has not had a bowel movement in 4 days. However she also has not been taking her senna Plus. She reports that she has been taking garcia probiotics and fiber which used to work relatively well for but in recent weeks to months this has not been working as well. This is probably worsened due to the fact that patient has been taking [place] on and off for the last couple of weeks. She does report some lightheadedness with standing. She has had some fatigue. She also has history of snoring and falls asleep easily and will fall asleep doing activities. She has never been tested for sleep apnea. She does have a history of ischemic colitis over 10 years ago when she was smoking. These symptoms are different than when she had colitis. When she a colitis she was having rectal bleeding which she denies at this time. Review of Systems Review of Systems: 12 systems were reviewed with pertinent positives and negatives per HPI. Except as documented in the HPI, all other systems were reviewed and are negative. [facility] Past Medical History Medical History (Updated 08/19/22 @ 05:55 by Razia Dean DO) Anxiety and depression Calculus of proximal left ureter Chronic headaches Claustrophobia Essential hypertension Irritable bowel syndrome with constipation Ischemic colitis (~2011) Left knee injury Tachycardia Tear of PCL (posterior cruciate ligament) of knee Surgical History Surgical History H/O section Family History Family History Grandparent Arthritis Heart disease Hypertension Mother , At age 52 Cerebrovascular accident, Onset Age: 52 Depression HLD (hyperlipidemia) Alcoholism Father , 72 years old Depression COPD (chronic obstructive pulmonary disease) COVID-19 Other D
[2022-08-19] MEDS: PIPERACILLN/TAZ 3.375GM/NS50ML 3.375 GM/50 ML BAG IVPB ×3 (05:38→17:09)
[2022-08-19 06:30] LABS: Basophils Percent Auto 0.2 % (0.2-1.2); Eosinophils Percent Auto 0.1 % (0-4.4); Hematocrit 26.6 % (37.0-47.0); Hemoglobin 7.8 g/dL (12.0-15.0); Immature Granulocyte Absolute 0.11 K/mm3 (0.00-0.031); Immature Granulocyte Percent A 0.6 % (0-0.5); Lymphocytes Absolute Auto 1.52 K/mm3 (0.9-3.2); Lymphocytes Percent Auto 8.7 % (18.3-44.2); Mean Corpuscular HGB Conc 29.3 g/dl (32-36); Mean Corpuscular Hemoglobin 23.1 pg (26-34); Mean Corpuscular Volume 78.9 fl (80-100); Mean Platelet Volume 10.8 fl (7.4-10.4); Monocytes Absolute Auto 1.4 K/mm3 (0.1-0.6); Monocytes Percent Auto 8.1 % (2.6-8.5); Neutrophils Absolute Auto 14.5 K/mm3 (1.3-6.7); Neutrophils Percent Auto 82.3 % (45.5-73.1); Platelet Count Result 249 k/mm3 (150-375); Red Blood Count 3.37 M/mm3 (4.2-5.4); Red Cell Distribution Width 16.7 % (11.5-14.5); White Blood Count 17.6 K/mm3 (4.5-10.0)
[2022-08-19 06:51] LABS: Alanine Aminotransferase 17 U/L (6-35); Albumin Level 3.6 g/dL (3.5-5.1); Alkaline Phosphatase 51 U/L (38-126); Anion Gap 7 mmol/L (8-16); Aspartate Amino Transferase 24 U/L (14-36); Bilirubin,Total 0.7 mg/dL (0.2-1.3); Blood Urea Nitrogen 9 mg/dL (7-17); Calcium 7.3 mg/dL (8.4-10.2); Carbon Dioxide 19 mmol/L (22-30); Chloride 108 mmol/L (98-107); Estimated CRCL calculation 94 ml/min; Estimated Glomerular Filt Rate > 60; Glucose 106 mg/dL (65-110); Potassium 3.6 mmol/L (3.4-5.0); Sodium 134 mmol/L (137-145)
[2022-08-19 08:28] LABS: Iron 22 ug/dL (37-170)
--- NOTE | 2022-08-19 08:30 | PM.IMPN ---
Progress Note: A&P Assessment and Plan (1) Sepsis: Qualifiers: Sepsis acute organ dysfunction status: without acute organ dysfunction Sepsis type: sepsis due to unspecified organism Qualified Code(s): A41.9 - Sepsis, unspecified organism Code(s): A41.9 - Sepsis, unspecified organism Status: Acute Assessment and Plan: sepsis criteria with leukocytosis, tachycardia and lactic acidosis. Source of infection acute diverticulitis and possible infected kidney stone UA does appear to be infection Lactic acid 2.9 on admission currently 0.9 NPO for cystoscopy this am Urology consulted Fluids given in the ED Zosyn continued from the ED Blood culture pending Trend labs (2) Hydronephrosis with obstructing calculus: Code(s): N13.2 - Hydronephrosis with renal and ureteral calculous obstruction Status: Acute Assessment and Plan: CT shows stones in the proximal left ureter with mild left hydronephrosis Trend urine output Urology consulted thank you for your help adjust therapy as indicated (3) Sigmoid diverticulitis: Code(s): K57.32 - Diverticulitis of large intestine without perforation or abscess without bleeding Status: Acute Assessment and Plan: CT indicated diverticulitis of the sigmoid colon Zosyn resumed from ED Stable at this time Pain medications on board Continue to trend labs NPO for now, then low fiber diet (4) Snoring: Code(s): R06.83 - Snoring Status: Acute Assessment and Plan: History of snoring, daytime fatigue, excessive daytime sleepiness and morbid obesity More than likely sleep apnea. Outpatient sleep study after discharge (5) Anemia: Qualifiers: Anemia type: unspecified type Qualified Code(s): D64.9 - Anemia, unspecified Code(s): D64.9 - Anemia, unspecified Status: Acute Assessment and Plan: H/H Stable at 7.8/26.6 down from admission of 1.2/33.0 Most likely related to fluids Continue to trend labs Anemia labs iron 22, TIBC 431, % saturation 5, B12 and folate pending add iron supplementation supplement as indicated Plan Patient noted headache will add excedrin Time Spent With Patient Time: 48 minutes Time with patient: Greater than 35 minutes Subjective Date/time seen: 08/19/22829 Interval history: 08/19/22829 Patient is currently lying on her side. Patient states that she still having some pretty significant pain mostly in the left flank wrapped around her abdomen into her bladder area. She currently rates her pain as 6/10 if she moves around and 3/10 she has lay still. She also states that she short of breath mostly related to the pain. She denies any chest pain, nausea, vomiting, diarrhea or constipation. She also stated that her arms are very weak and she has a headache. decrease the fluids due to his today given drop in the H&H. Patient was going down to OR for cystoscopy at this time. 08/19/22? 03:53 42-year-old female with a past medical history of obesity, hypertension, kidney stones and asthma who presented to the ER with abdominal pain.? The patient had originally presented to the ER on 07/31/2022 due to left-sided abdominal pain and radiated up to left upper quadrant and left flank.? The pain was sharp stabbing and twisting in nature.? She had a CT of the abdomen pelvis without contrast at that time which demonstrated 6 mm left UPJ stone causing obstructive uropathy.? She was discharged on antibiotics, Flomax and [place].? She was unable to follow-up with Urology as they do not accept her insurance.? She reports that her symptoms did give better while on the medications.? She did not need to take all of the [place] and she had some of it left.? However she still was having some decreased appetite, and nausea.? She was still have occasional episodes of left upper quadrant p
--- NOTE | 2022-08-19 08:30 | P.PNIM_ITS ---
Progress Note: A&P Assessment and Plan (1) Sepsis: Qualifiers: Sepsis acute organ dysfunction status: without acute organ dysfunction Sepsis type: sepsis due to unspecified organism Qualified Code(s): A41.9 - S epsis, unspecified organism Code(s): A41.9 - Sepsis, unspecified organism Status: Acute Assessment and Plan: * sepsis criteria with leukocytosis, tachycardia and lactic acidosis. * Source of infection acute diverticulitis and possible infected kidney stone * UA does appear to be infection * Lactic acid 2.9 on admission currently 0.9 * NPO for cystoscopy this am * Urology consulted * Fluids given in the ED * Zosyn continued from the ED * Blood culture pending * Trend labs (2) Hydronephrosis with obstructing calculus: Code(s): N13.2 - Hydronephrosis with renal and ureteral calculous obstruction Status: Acute Assessment and Plan: * CT shows stones in the proximal left ureter with mild left hydronephrosis * Trend urine output * Urology consulted thank you for your help * adjust therapy as indicated (3) Sigmoid diverticulitis: Code(s): K57.32 - Diverticulitis of large intestine without perforation or abscess without bleeding Status: Acute Assessment and Plan: * CT indicated diverticulitis of the sigmoid colon * Zosyn resumed from ED * Stable at this time * Pain medications on board * Continue to trend labs * NPO for now, then low fiber diet (4) Snoring: Code(s): R06.83 - Snoring Status: Acute Assessment and Plan: * History of snoring, daytime fatigue, excessive daytime sleepiness and morbid obesity * More than likely sleep apnea. * Outpatient sleep study after discharge (5) Anemia: Qualifiers: Anemia type: unspecified type Qualified Code(s): D64.9 - Anemia, unspecified Code(s): D64.9 - Anemia, unspecified Status: Acute Assessment and Plan: * H/H Stable at 7.8/26.6 * down from admission of 1.2/33.0 * Most likely related to fluids * Continue to trend labs * Anemia labs iron 22, TIBC 431, % saturation 5, B12 and folate pending * add iron supplementation * supplement as indicated Plan Patient noted headache will add excedrin Time Spent With Patient Time: 48 minutes Time with patient: Greater than 35 minutes Subjective Date/time seen: 08/19/22829 Interval history: 08/19/22829 Patient is currently lying on her side. Patient states that she still having some pretty significant pain mostly in the left flank wrapped around her abdomen into her bladder area. She currently rates her pain as 6/10 if she moves around and 3/10 she has lay still. She also states that she short of breath mostly related to the pain. She denies any chest pain, nausea, vomiting, diarrhea or constipation. She also stated that her arms are very weak and she has a headache. decrease the fluids due to his today given drop in the H&H. Patient was going down to OR for cystoscopy at this time. 08/19/22? 03:53 42-year-old female with a past medical history of obesity, hypertension, kidney stones and asthma who presented to the ER with abdominal pain.? The patient had originally presented to the ER on 07/31/2022 due to left-sided abdominal pain and radiated up to left upper quadrant and left flank.? The pain was sharp stabbing and twisting in nature.? She had a CT of the
[2022-08-19] MEDS: atenoloL 25 MG TABLET PO ×2 (08:32→20:06)
[2022-08-19 08:37] LABS: Percent Iron Saturation 5 % (20-50)
[2022-08-19 08:38] LABS: Transferrin 227 mg/dL (206-381)
[2022-08-19] MEDS: SODIUM CHLORIDE 0.9% IV 1,000 ML 75 ML IV CONT ×2 (09:14→13:10)
--- NOTE | 2022-08-19 09:28 | WPDANESEPPF ---
Anes - Initial Pre Proc Eval Procedure: Operation Date: 08/19/22 09:30 Proposed Procedures p Cystoscopy with left ureteral stent placement(Left) - Jeevan Diaz MD Date/Time: 08/19/22 09:28 Surgeon: Razia Dean DO Pre Op Diagnosis: Sepsis Patient Data Age: 42 Gender: F Height: 1.6 m Weight: 85.2 kg Last Vital Signs Temp 36.5 C 08/19/22 03:39 Pulse 106 H 08/19/22 08:32 Resp 14 08/19/22 03:39 BP 124/69 08/19/22 03:39 Pulse Ox 99 08/19/22 03:39 O2 Del Method Room Air 08/19/22 01:35 Allergies Allergy/AdvReac Type Severity Reaction Status Date / Time latex Allergy Unknown Rash Verified 07/31/22 21:49 nicotine AdvReac Mild Rash=Patch Verified 07/31/22 21:49 Home Medications Medication Instructions Recorded Confirmed Type atenolol 25 mg tablet 25 mg PO BID 05/04/21 08/19/22 History cholecalciferol (vitamin D3) 10 10 mcg PO DAILY 02/04/22 08/19/22 History mcg (400 unit) tablet (Vitamin D3) sertraline 25 mg tablet 50 mg PO DAILY 02/04/22 08/19/22 History hydrocodone 5 mg-acetaminophen 325 1 tablet PO Q6H PRN pain #20 tabs 08/01/22 08/19/22 Rx mg tablet ondansetron 4 mg disintegrating 4 mg PO Q8H PRN nausea and 08/01/22 08/19/22 Rx tablet vomiting #10 tabs cyclobenzaprine 10 mg tablet 10 mg PO TID 08/19/22 08/19/22 History Laboratory Tests 08/18/22 08/18/22 08/18/22 21:07 21:13 21:30 WBC 22.2 H K/mm3 (4.5-10.0) RBC 4.28 M/mm3 (4.2-5.4) Hgb 10.2 L g/dL (12.0-15.0) Hct 33.0 L % (37.0-47.0) MCV 77.1 L fl (80-100) MCH 23.8 L pg (26-34) MCHC 30.9 L g/dl (32-36) RDW 16.9 H % (11.5-14.5) Plt Count 337 k/mm3 (150-375) MPV 10.0 fl (7.4-10.4) Immature Gran % (Auto) 0.5 % (0-0.5) Neut % (Auto) 84.8 H % (45.5-73.1) Lymph % (Auto) 5.6 L % (18.3-44.2) [place] % (Auto) 8.7 H % (2.6-8.5) Eos % (Auto) 0.0 % (0-4.4) Baso % (Auto) 0.4 % (0.2-1.2) Lymph # (Auto) 1.25 K/mm3 (0.9-3.2) [place] # (Auto) 1.9 H K/mm3 (0.1-0.6) Eos # (Auto) 0.0 K/mm3 (0-0.3) Baso # (Auto) 0.1 K/mm3 (0.0-0.1) Abs Immat Gran (auto) 0.12 H K/mm3 (0.00-0.031) Absolute Neuts (auto) 18.8 H K/mm3 (1.3-6.7) Absolute Nucleated RBC 0.0 K/mm3 (0.0-0.012) Nucleated RBC % 0.0 % (0.0-0.2) Sodium 134 L mmol/L (137-145) Potassium 4.2 mmol/L (3.4-5.0) Chloride 103 mmol/L (98-107) Carbon Dioxide 19 L mmol/L (22-30) Anion Gap 12 mmol/L (8-16) BUN 14 mg/dL (7-17) Creatinine 0.90 mg/dL (0.7-1.0) Estim Creat Clear Calc Not Reportable Estimated GFR > 60 (59 - ) Glucose 130 H mg/dL (65-110) Lactic Acid 2.9 H mmol/L (0.7-2.0) Calcium 8.9 mg/dL (8.4-10.2) Iron 22 L ug/dL (37-170) TIBC 431 ug/dL (261-462) % Saturation 5 L % (20-50) Transferrin Ferritin 16.40 ng/mL (6.24-137) Total Bilirubin 0.6 mg/dL (0.2-1.3) AST 32 U/L (14-36) ALT 38 H U/L (6-35) Alkaline Phosphatase 65 U/L (38-126) Total Protein 8.0 g/dL (6.3-8.2) Albumin 4.8 g/dL (3.5-5.1) Lipase 30 U/L (23-300) Vitamin B12 Folate Urine Color Yellow (Yellow) Urine Appearance Clear (Clear) Urine pH 6.5 (5.0-9.0) Ur Specific [place] 1.012 (1.001-1.035) Urine Protein Negative mg/dL (Negative) Urine Glucose (UA) Negative mg/dL (Negative) Urine Ketones Negative mg/dL (Negative) Ur Blood (Man) Non-hemolyzed trace (Negative) Urine Nitrate Negative (Negative) Urine Bilirubin Negat
--- NOTE | 2022-08-19 09:34 | WPDURCON ---
Assessment and Plan Assessment and plan (1) Hydronephrosis with obstructing calculus: Code(s): N13.2 - Hydronephrosis with renal and ureteral calculous obstruction Status: Acute Assessment and Plan: 7 mm left proximal ureteral stone with evidence of sepsis- resolving this morning- also with acute diverticulitis. - given possibility of obstructive pyelonephritis and failure of two weeks of MET, will proceed with placement of left ureteral stent. disussed that she will require delayed stone treatment probably with ESWL/stent removal. reviewed stents, stent irritation, etc. she agrees to proceed. Urology Consult Note HPI Date Seen: 08/19/22 Requesting Physician: Razia Dean DO Primary Care Provider: DEPARTMENTAL SECRETARY PHYSICIAN Consult Narrative Narrative: Jannette John is a 42 year old female with a history of stones. She presented two weeks ago with left flank pain and was discharged for trial of MET. She presented again last night. She has left flank pain radiating to groin, nausea, also with LLQ pain. WBC was 22, down to 17 this morning. No fevers, but tachycardic. Creat normal. UA benign. CT shows medullary nephrocalcinosis. Left proximal ureter 7 mm stone with moderate hydro. Also shows acute diverticulitis. She has been started on zosyn last night. Review of Systems Review of Systems: All systems reviewed & are unremarkable except as noted in HPI and below PMFSH Past Medical History Medical History Anxiety and depression Calculus of proximal left ureter Chronic headaches Claustrophobia Essential hypertension Irritable bowel syndrome with constipation Ischemic colitis (~2011) Left knee injury Tachycardia Tear of PCL (posterior cruciate ligament) of knee Surgical History Surgical History H/O section Family History Family History Grandparent Arthritis Heart disease Hypertension Mother , At age 52 Cerebrovascular accident, Onset Age: 52 Depression HLD (hyperlipidemia) Alcoholism Father , 72 years old Depression COPD (chronic obstructive pulmonary disease) COVID-19 Other Diabetes mellitus Social History Social History Social History: She lives at home with her for younger children. She has 2 children age 20 and 19 and a moved out. She used to smoke a pack of cigarettes per day. She started smoking at age 13 and quit smoking in 2020. She only drinks alcohol about once a year. She denies illicit substance use. 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 Code status: Full code Surrogate decision maker: Alee Garcia (grandmother) Smoking packs per day: 1 Smoking cigarettes per day: 20.0 Years smoked: 27 Smoking pack-years: 27.00 Smoking status: Former smoker Tobacco type: cigarettes Smoking end date: 06/10/21 Alcohol intake: current Substance use: never Substance use type: does not use Lack of Transportation: No Lack of Food: Sometimes True Current Housing: I Have Housing Concerned About Future Housing: No Difficulty Paying Gas/Electric Bills: No Difficulty Paying for Meds: No Currently Unemployed: No Education: Trade/Vocational Certificate Difficulty w/ Childcare or Family Care: No Living arrangements: with family Occupation/Education: occupation Gender identity (if verbalized by the patient): Female Spiritual care concerns: No Meds Home Medications and Allergies Home Medications Medication Instructions Recorded Confirmed Type atenolol 25 mg tablet 25 mg PO BID 05/04/21 08/19/22 History cholecalciferol (vitamin D3) 10 10 mcg PO DAILY 02/04/22 08/19/22 History mcg (400 unit) tablet (Vitamin D3) sertraline 25 mg tablet 50 mg PO DAILY 02/04/22
[2022-08-19] MEDS: LACTATED RINGERS 1,000 ML 30 ML IV CONT (09:35)
[2022-08-19] MEDS: LIDOCAINE HCL 2% GEL UROJET 10 ML PKG MUCOUS MEM (09:54)
--- NOTE | 2022-08-19 10:07 | W.PM.PROC2 ---
Procedure Note - Detailed Date of Procedure 08/19/22 Pre-op Diagnosis Sepsis with obstructing ureteral stone Post-op Diagnosis Same Procedure Performed Cystoscopy, left ureteral stent placement Surgeon Jeevan Diaz MD Anesthesia MAC Indications 42-year-old female with sepsis and obstructing ureteral stone Findings Unremarkable stent placement Description of Procedure Patient brought back to the abdomen. She was prepped, draped and padded per protocol. Sedation was utilized. She was on therapeutic Zosyn. Time-out was performed. Bladder was entered with the rigid cystoscope. The bladder was unremarkable without evidence of infection visually. Bentson wire was placed up the left ureter under fluoroscopic guidance. It would not travel past the stone. A Glidewire was able to be manipulated past the stones up into the upper tract. Over this a 4.8 Yoruba by 26 cm double-J ureteral stent was advanced. Good curl noted proximally and a good curl visualized in the bladder. There was no obvious purulent material from the upper tract so presumably her source of infection is the acute diverticulitis. Implants Left ureteral stent Urine Output 400
[2022-08-19] MEDS: fentaNYL CITRATE INJ (*CRX) 100 MCG/2 ML VIAL 25 MCG IV PUSH (10:41)
[2022-08-19 11:33] LABS: Folic Acid 18.2 ng/mL (2.76->20)
[2022-08-19] MEDS: SERTRALINE HCL 50 MG TABLET PO (12:29)
[2022-08-19] MEDS: CHOLECALCIFEROL 400 UNITS TABLET (VIT D) PO (12:29)
[2022-08-19] MEDS: FERROUS SULFATE 324 MG TABLET PO (17:09)
[2022-08-19] MEDS: ACETAMINOPHEN/ASPIRIN/CAFFEINE 250-250-65 MG TABLET 1 TABLET PO (17:16)
[2022-08-20] VITALS (12 sets, daily range): BP systolic 106–125; BP diastolic 58–76; PULSE 69–86; RESP 14–18; TEMP 36.7–36.9; O2SAT 99–100
[2022-08-20] MEDS: PIPERACILLN/TAZ 3.375GM/NS50ML 3.375 GM/50 ML BAG IVPB ×4 (01:00→17:16)
[2022-08-20] MEDS: HYDROmorphone HCL INJ (*CRX) 1 MG/ML SYR IV PUSH ×3 (02:15→12:37)
[2022-08-20] MEDS: ONDANSETRON INJ 4 MG/2 ML VIAL IV PUSH ×3 (02:15→12:36)
[2022-08-20] MEDS: SODIUM CHLORIDE 0.9% IV 1,000 ML 75 ML IV CONT (02:18)
[2022-08-20 05:13] LABS: Basophils Percent Auto 0.2 % (0.2-1.2); Hematocrit 25.8 % (37.0-47.0); Hemoglobin 7.6 g/dL (12.0-15.0); Immature Granulocyte Absolute 0.16 K/mm3 (0.00-0.031); Immature Granulocyte Percent A 0.9 % (0-0.5); Lymphocytes Absolute Auto 1.02 K/mm3 (0.9-3.2); Lymphocytes Percent Auto 5.8 % (18.3-44.2); Mean Corpuscular HGB Conc 29.5 g/dl (32-36); Mean Corpuscular Hemoglobin 23.5 pg (26-34); Mean Corpuscular Volume 79.9 fl (80-100); Mean Platelet Volume 10.8 fl (7.4-10.4); Monocytes Absolute Auto 0.9 K/mm3 (0.1-0.6); Monocytes Percent Auto 5.3 % (2.6-8.5); Neutrophils Absolute Auto 15.5 K/mm3 (1.3-6.7); Neutrophils Percent Auto 87.8 % (45.5-73.1); Platelet Count Result 267 k/mm3 (150-375); Red Blood Count 3.23 M/mm3 (4.2-5.4); Red Cell Distribution Width 16.9 % (11.5-14.5); White Blood Count 17.7 K/mm3 (4.5-10.0)
[2022-08-20 05:30] LABS: Alanine Aminotransferase 22 U/L (6-35); Albumin Level 3.7 g/dL (3.5-5.1); Alkaline Phosphatase 66 U/L (38-126); Anion Gap 7 mmol/L (8-16); Aspartate Amino Transferase 28 U/L (14-36); Bilirubin,Total 0.3 mg/dL (0.2-1.3); Blood Urea Nitrogen 8 mg/dL (7-17); Calcium 7.9 mg/dL (8.4-10.2); Carbon Dioxide 23 mmol/L (22-30); Chloride 108 mmol/L (98-107); Estimated CRCL calculation 94 ml/min; Estimated Glomerular Filt Rate > 60; Glucose 124 mg/dL (65-110); Magnesium 2.3 mg/dL (1.6-2.3); Potassium 3.8 mmol/L (3.4-5.0); Sodium 138 mmol/L (137-145)
[2022-08-20] MEDS: ACETAMINOPHEN/ASPIRIN/CAFFEINE 250-250-65 MG TABLET 1 TABLET PO (06:05)
--- NOTE | 2022-08-20 09:15 | PM.IMPN ---
Progress Note: A&P Assessment and Plan (1) Sepsis: Qualifiers: Sepsis acute organ dysfunction status: without acute organ dysfunction Sepsis type: sepsis due to unspecified organism Qualified Code(s): A41.9 - Sepsis, unspecified organism Code(s): A41.9 - Sepsis, unspecified organism Status: Acute Assessment and Plan: sepsis criteria with leukocytosis, tachycardia and lactic acidosis. Source of infection acute diverticulitis and possible infected kidney stone UA does appear to be infection, urine culture no grow noted Lactic acid 2.9 on admission currently 0.9 Cystoscopy preformed on 08/20/22, with stent placement Urology consulted Fluids given in the ED Zosyn continued day 2 Blood culture NGTD Trend labs (2) Hydronephrosis with obstructing calculus: Code(s): N13.2 - Hydronephrosis with renal and ureteral calculous obstruction Status: Acute Assessment and Plan: CT shows stones in the proximal left ureter with mild left hydronephrosis Trend urine output Urology consulted thank you for your help adjust therapy as indicated (3) Sigmoid diverticulitis: Code(s): K57.32 - Diverticulitis of large intestine without perforation or abscess without bleeding Status: Acute Assessment and Plan: CT indicated diverticulitis of the sigmoid colon Zosyn continued day 2 Stable at this time Pain medications on board Continue to trend labs Currently on regular diet change to low fiber (4) Snoring: Code(s): R06.83 - Snoring Status: Acute Assessment and Plan: History of snoring, daytime fatigue, excessive daytime sleepiness and morbid obesity More than likely sleep apnea. Outpatient sleep study after discharge (5) Anemia: Qualifiers: Anemia type: unspecified type Qualified Code(s): D64.9 - Anemia, unspecified Code(s): D64.9 - Anemia, unspecified Status: Acute Assessment and Plan: H/H Stable at 7.6/25.8 down from admission of 10.2/33.0 Most likely related to fluids, fluids stopped at this time Continue to trend labs Anemia labs iron 22, TIBC 431, % saturation 5, B12 374 and folate 18.2 iron supplementation on board supplement as indicated (6) Leukocytosis: Qualifiers: Leukocytosis type: bandemia Qualified Code(s): D72.825 - Bandemia Code(s): D72.829 - Elevated white blood cell count, unspecified Status: Acute Assessment and Plan: WBC continues to trend up, currently at 17.7 bands rising currently at 0.9 Continue IV antibiotics for now Trend labs Blood cultures negative to date Urine negative to date Occult blood ordered Stool cultures Plan Patient noted headache will add excedrin Constipation, added miralax and colace, PRN miralax Time Spent With Patient Time: 48 minutes Time with patient: Greater than 35 minutes Subjective Date/time seen: 08/20/22914 Interval history: 08/20/22914 Patient stated that she is feeling better at this time. She is still having some pain which she stated was 6/10 on the left flank that does radiate to her abdomen. She stated that her breathing is more normal. She did ask me about questions about her CT scan answer them appropriately. She did state that she is constipated IBS. Spoke with her at length about got health. Will also get a lipid panel in the morning. Currently she denies any chest pain, shortness a breath, nausea, vomiting, diarrhea. She stated that her last bowel movement was roughly 7 days ago. 08/19/22 0830 Patient is currently lying on her side. Patient states that she still having some pretty significant pain mostly in the left flank wrapped around her abdomen into her bladder area. She currently rates her pain as 6/10 if she moves around and 3/10 she has lay still. She also states that s
--- NOTE | 2022-08-20 09:15 | P.PNIM_ITS ---
Progress Note: A&P Assessment and Plan (1) Sepsis: Qualifiers: Sepsis acute organ dysfunction status: without acute organ dysfunction Sepsis type: sepsis due to unspecified organism Qualified Code(s): A41.9 - S epsis, unspecified organism Code(s): A41.9 - Sepsis, unspecified organism Status: Acute Assessment and Plan: * sepsis criteria with leukocytosis, tachycardia and lactic acidosis. * Source of infection acute diverticulitis and possible infected kidney stone * UA does appear to be infection, urine culture no grow noted * Lactic acid 2.9 on admission currently 0.9 * Cystoscopy preformed on 08/20/22, with stent placement * Urology consulted * Fluids given in the ED * Zosyn continued day 2 * Blood culture NGTD * Trend labs (2) Hydronephrosis with obstructing calculus: Code(s): N13.2 - Hydronephrosis with renal and ureteral calculous obstruction Status: Acute Assessment and Plan: * CT shows stones in the proximal left ureter with mild left hydronephrosis * Trend urine output * Urology consulted thank you for your help * adjust therapy as indicated (3) Sigmoid diverticulitis: Code(s): K57.32 - Diverticulitis of large intestine without perforation or abscess without bleeding Status: Acute Assessment and Plan: * CT indicated diverticulitis of the sigmoid colon * Zosyn continued day 2 * Stable at this time * Pain medications on board * Continue to trend labs * Currently on regular diet change to low fiber (4) Snoring: Code(s): R06.83 - Snoring Status: Acute Assessment and Plan: * History of snoring, daytime fatigue, excessive daytime sleepiness and morbid obesity * More than likely sleep apnea. * Outpatient sleep study after discharge (5) Anemia: Qualifiers: Anemia type: unspecified type Qualified Code(s): D64.9 - Anemia, unspecified Code(s): D64.9 - Anemia, unspecified Status: Acute Assessment and Plan: * H/H Stable at 7.6/25.8 * down from admission of 10.2/33.0 * Most likely related to fluids, fluids stopped at this time * Continue to trend labs * Anemia labs iron 22, TIBC 431, % saturation 5, B12 374 and folate 18.2 * iron supplementation on board * supplement as indicated (6) Leukocytosis: Qualifiers: Leukocytosis type: bandemia Qualified Code(s): D72.825 - Bandemia Code(s): D72.829 - Elevated white blood cell count, unspecified Status: Acute Assessment and Plan: * WBC continues to trend up, currently at 17.7 * bands rising currently at 0.9 * Continue IV antibiotics for now * Trend labs * Blood cultures negative to date * Urine negative to date * Occult blood ordered * Stool cultures Plan Patient noted headache will add excedrin Constipation, added miralax and colace, PRN miralax Time Spent With Patient Time: 48 minutes Time with patient: Greater than 35 minutes Subjective Date/time seen: 08/20/22914 Interval history: 08/20/22914 Patient stated that she is feeling better at this time. She is still having some pain which she stated was 6/10 on the left flank that does radiate to her abdomen. She stated that her breathing is more normal. She did ask me about questions about her CT scan answer them appropriately. She
[2022-08-20] MEDS: HYDROcodone/acetaminophen (*CRX) 5-325 MG TABLET 1 TAB PO ×2 (09:34→17:21)
[2022-08-20] MEDS: SERTRALINE HCL 50 MG TABLET PO (09:34)
[2022-08-20] MEDS: CHOLECALCIFEROL 400 UNITS TABLET (VIT D) PO (09:34)
[2022-08-20] MEDS: atenoloL 25 MG TABLET PO ×2 (09:34→20:43)
[2022-08-20] MEDS: FERROUS SULFATE 324 MG TABLET PO ×2 (09:34→17:16)
--- NOTE | 2022-08-20 10:59 | WPDUROPN2 ---
Progress Note: A&P Assessment and Plan (1) Hydronephrosis with obstructing calculus: Code(s): N13.2 - Hydronephrosis with renal and ureteral calculous obstruction Status: Acute Assessment and Plan: 42F with left obstructing ureteral stone s/p stent placement 08/19/2022 - whenever other medical issues resolved, she can discharge from urologic perspective - she will need ESWL+stent removal in a few weeks, reviewed and gave her Maggy's card - solifenacin/oxybutynin/etc can be used for bladder discomfort with stent - call with any urologic questions, otherwise will arrange outpt stone treatment Subjective Subjective Date/Time Seen: 08/20/22 10:59 Interval history: Doing fine, feeling about the same. Tolerating stent okay with some bladder pressure. Review of Systems Review of Systems: All systems reviewed & are unremarkable except as noted in HPI and below Exam Narrative: alert, oriented, no distress, appears comfortable; judgment intact Objective Data Vital Signs Vital Signs: Vital Signs - 24 hr 08/19/22 11:10 08/19/22 11:25 08/19/22 14:31 Temperature 36.9 C 36.9 C Pulse Rate 99 101 H Respiratory Rate 16 16 Blood Pressure 120/76 125/72 Pulse Oximetry 96 97 93 Oxygen Delivery Room Air 08/19/22 12:23 08/19/22 11:55 08/19/22 12:55 Temperature 36.8 C 36.4 C Pulse Rate 91 95 98 Respiratory Rate 16 16 Blood Pressure 108/71 116/75 Pulse Oximetry 98 96 Oxygen Delivery 08/19/22 16:46 08/19/22 16:00 08/19/22 20:06 Temperature 36.7 C Pulse Rate 90 88 88 Respiratory Rate 16 Blood Pressure 118/68 Pulse Oximetry 97 Oxygen Delivery 08/19/22 21:21 08/19/22 20:00 08/20/22 00:00 Temperature 36.4 C Pulse Rate 80 85 77 Respiratory Rate 16 Blood Pressure 102/60 Pulse Oximetry 98 Oxygen Delivery 08/20/22 04:00 08/20/22 05:27 08/20/22 09:32 Temperature 36.8 C Pulse Rate 76 84 Respiratory Rate 14 Blood Pressure 109/64 112/58 L Pulse Oximetry 99 Oxygen Delivery 08/20/22 09:34 08/20/22 08:00 08/20/22 09:30 Temperature Pulse Rate 80 79 Respiratory Rate Blood Pressure Pulse Oximetry Oxygen Delivery Room Air Intake/Output Intake/Output: Intake & Output 08/17/22 08/18/22 08/19/22 08/20/22 23:59 23:59 23:59 23:59 Intake Total 1050 5400 1880 Output Total 3050 400 Balance 1050 2350 1480 Meds/Results Medications: Active Medications Generic Name Dose Route Start Last Admin Trade Name Freq PRN Reason Stop Dose Admin Acetaminophen 650 mg 08/18/22 23:28 08/19/22 00:08 Acetaminophen 325 Mg Tablet PO 650 mg Q4H PRN Administration Mild Pain (1-3) or Fever Acetaminophen/Aspirin/Caffeine 1 tablet 08/19/22 10:07 08/20/22 06:05 Acetaminophen/Aspirin/Caffeine 250-250-65 Mg Tablet PO 1 tablet Q6H PRN Administration Headache Hydrocodone Bitart/Acetaminophen 1 tab 08/20/22 07:35 08/20/22 09:34 Hydrocodone/Acetaminophen (*Crx) 5-325 Mg Tablet PO 1 tab Q4H PRN Administration Pain Rated 4-6 Atenolol 25 mg 08/19/22 09:00 08/20/22 09:34 Atenolol 25 Mg Tablet PO 25 mg Q12HR JUANIS Administration Ferrous Sulfate 324 mg 08/19/22 17:00 08/20/22 09:34 Ferrous Sulfate 324 Mg Tablet PO 324 mg BIDWM JUANIS Administration Hydromorphone HCl 1 mg 08/19/22 00:13 08/20/22 05:55 Hydromorphone Hcl Inj (*Crx) 1 Mg/Ml Syr IV PUSH 1 mg Q3H PRN Administration Pain Rated 7-10 Piperacillin/Tazobactam/Dextrose 3.375 gm in 50 mls @ 100 mls/hr 08/19/22 05:00 08/20/22 06:30 Zosyn 3.375 Gm/Ns 50 Ml IVPB Infused Q6HR JUANIS Infusion Ondansetron HCl 4 mg 08/18/22 23:28 08/20/22 05:56 Ondansetron Inj 4 Mg/2 Ml Vial IV PUSH 4 mg Q4H PRN Administration Nausea Sertraline HCl 50 mg 08/19/22 09:00 08/20/22 09:34 Sertraline Hcl 50 Mg Tablet PO 50 mg DAILY JUANIS Administration Vitamin D 400 units 08/19/22 09:00 08/20/22 09:34
[2022-08-20] MEDS: polyethylene glycoL 3350 17 GM POWD.PACK PO (12:36)
[2022-08-20] MEDS: DOCUSATE SODIUM 100 MG CAPSULE PO ×2 (12:36→20:42)
--- NOTE | 2022-08-20 14:44 | ECG_ITS ---
Measurements Intervals [place] Rate: 81 P: 40 ME: 160 QRS: 61 QRSD: 97 T: 1 QT: 387 QTc: 451 Interpretive Statements SINUS RHYTHM BORDERLINE ST-T WAVE ABNORMALITY- INFERIOR LEADS BORDERLINE ECG COMPARED TO ECG 09/01/2018 16:59:25 NO SIGNIFICANT CHANGES Electronically Signed On 08-20-2022 20:39:03 CDT by Luis Felipe Padron D.O.
[2022-08-20 15:27] LABS: Troponin I < 0.012 ng/mL (0.000-0.034)
[2022-08-20] MEDS: oxyBUTYnin CHLORIDE 5 MG TABLET PO (18:04)
[2022-08-20] MEDS: BISACODYL 10 MG SUPPOSITORY RECTAL (18:04)
--- NOTE | 2022-08-20 18:49 | P.PNAN_ITS ---
Anes - Prog Note Post-Op Date/Time: 08/20/22 18:49 Cardiovascular status: normal Respiratory status: normal Airway patency: baseline Mental status: baseline Post-Op hydration status: normal Vital Signs: Last Vital Signs Temp 36.7 C 08/20/22 14:26 Pulse 83 08/20/22 16:00 Resp 16 08/20/22 14:26 BP 106/64 08/20/22 14:26 Pulse Ox 100 08/20/22 14:26 O2 Del Method Room Air 08/20/22 09:30 Pain Score (VAS): 0 I/O: Intake & Output 08/20/22 08/20/22 08/20/22 07:59 15:59 23:59 Intake Total 7353 776 1232 Output Total 400 450 Balance 0123 350 0306 Laboratory Tests 08/20/22 04:37 08/20/22 04:37 08/20/22 08/20/22 08/20/22 04:37 15:00 18:14 WBC 17.7 H RBC 3.23 L Hgb 7.6 L Hct 25.8 L MCV 79.9 L MCH 23.5 L MCHC 29.5 L RDW 16.9 H Plt Count 267 MPV 10.8 H Immature Gran % (Auto) 0.9 H Neut % (Auto) 87.8 H Lymph % (Auto) 5.8 L [place] % (Auto) 5.3 Eos % (Auto) 0.0 Baso % (Auto) 0.2 Lymph # (Auto) 1.02 [place] # (Auto) 0.9 H Eos # (Auto) 0.0 Baso # (Auto) 0.0 Abs Immat Gran (auto) 0.16 H Absolute Neuts (auto) 15.5 H Absolute Nucleated RBC 0.0 Nucleated RBC % 0.0 Sodium 138 Potassium 3.8 Chloride 108 H Carbon Dioxide 23 Anion Gap 7 L BUN 8 Creatinine 0.70 Estim Creat Clear Calc 94 Estimated GFR > 60 Glucose 124 H Calcium 7.9 L Magnesium 2.3 Total Bilirubin 0.3 AST 28 ALT 22 Alkaline Phosphatase 66 Troponin I < 0.012 Total Protein 7.0 Albumin 3.7 Stl Occult Blood (IFOB) Pending Ova & Parasites Pending Microbiology 08/18/22 21:07 Urine Clean Catch Urine Culture - Final 08/18/22 22:23 Blood Blood Culture - Preliminary 08/18/22 22:23 Blood Blood Culture - Preliminary Post-procedural complaints: none Patient Feedback: Patient satisfied with anesthetic care.
[2022-08-20 19:17] LABS: IFOB Positive Control Positive; Immunochemical Fecal Occult Bl Negative (N)
[2022-08-21] VITALS (8 sets, daily range): BP systolic 124–135; BP diastolic 61–80; PULSE 71–82; RESP 18–19; TEMP 36.5–37.1; O2SAT 99–100
[2022-08-21] MEDS: HYDROmorphone HCL INJ (*CRX) 1 MG/ML SYR IV PUSH ×2 (00:09→08:05)
[2022-08-21] MEDS: oxyBUTYnin CHLORIDE 5 MG TABLET PO ×3 (00:13→21:02)
[2022-08-21] MEDS: ONDANSETRON INJ 4 MG/2 ML VIAL IV PUSH ×2 (00:13→08:05)
[2022-08-21] MEDS: ACETAMINOPHEN/ASPIRIN/CAFFEINE 250-250-65 MG TABLET 1 TABLET PO ×2 (02:03→12:12)
[2022-08-21] MEDS: HYDROcodone/acetaminophen (*CRX) 5-325 MG TABLET 1 TAB PO ×2 (04:47→23:24)
[2022-08-21] MEDS: DOCUSATE SODIUM 100 MG CAPSULE PO ×2 (04:51→21:03)
[2022-08-21] MEDS: polyethylene glycoL 3350 17 GM POWD.PACK PO (04:51)
[2022-08-21 04:55] LABS: Basophils Absolute Auto 0.1 K/mm3 (0.0-0.1); Basophils Percent Auto 0.4 % (0.2-1.2); Eosinophils Absolute Auto 0.1 K/mm3 (0-0.3); Eosinophils Percent Auto 0.9 % (0-4.4); Hematocrit 24.5 % (37.0-47.0); Hemoglobin 7.2 g/dL (12.0-15.0); Immature Granulocyte Absolute 0.05 K/mm3 (0.00-0.031); Immature Granulocyte Percent A 0.4 % (0-0.5); Lymphocytes Absolute Auto 2.06 K/mm3 (0.9-3.2); Lymphocytes Percent Auto 15.8 % (18.3-44.2); Mean Corpuscular HGB Conc 29.4 g/dl (32-36); Mean Corpuscular Hemoglobin 23.2 pg (26-34); Mean Platelet Volume 10.8 fl (7.4-10.4); Monocytes Percent Auto 7.7 % (2.6-8.5); Neutrophils Absolute Auto 9.7 K/mm3 (1.3-6.7); Neutrophils Percent Auto 74.8 % (45.5-73.1); Platelet Count Result 291 k/mm3 (150-375)
[2022-08-21 05:08] LABS: Alanine Aminotransferase 23 U/L (6-35); Albumin Level 3.4 g/dL (3.5-5.1); Alkaline Phosphatase 56 U/L (38-126); Anion Gap 6 mmol/L (8-16); Aspartate Amino Transferase 24 U/L (14-36); Bilirubin,Total 0.3 mg/dL (0.2-1.3); Blood Urea Nitrogen 11 mg/dL (7-17); Calcium 7.7 mg/dL (8.4-10.2); Carbon Dioxide 24 mmol/L (22-30); Chloride 109 mmol/L (98-107); Cholesterol 171 mg/dL (0-200); Estimated CRCL calculation 75 ml/min; Estimated Glomerular Filt Rate > 60; Glucose 86 mg/dL (65-110); HDL Direct 34 mg/dL; Magnesium 1.9 mg/dL (1.6-2.3); Potassium 3.4 mmol/L (3.4-5.0); Sodium 139 mmol/L (137-145); Triglycerides 118 mg/dL (<150)
[2022-08-21 05:19] LABS: LDL Cholesterol Direct 110 mg/dL
[2022-08-21 05:31] LABS: Anisocytosis 2+ (NORMAL); Hypochromasia 2+ (NORMAL); Platelet Estimate Adequate (Adequate); Poikilocytosis 1+ (NORMAL); Schistocytes None Seen (NORMAL)
[2022-08-21] MEDS: PIPERACILLN/TAZ 3.375GM/NS50ML 3.375 GM/50 ML BAG IVPB ×3 (05:41→12:07)
[2022-08-21] MEDS: CHOLECALCIFEROL 400 UNITS TABLET (VIT D) PO (08:06)
[2022-08-21] MEDS: SERTRALINE HCL 50 MG TABLET PO (08:06)
[2022-08-21] MEDS: atenoloL 25 MG TABLET PO ×2 (08:06→21:03)
[2022-08-21] MEDS: FERROUS SULFATE 324 MG TABLET PO ×2 (08:06→16:37)
[2022-08-21] MEDS: ATORVASTATIN 20 MG TABLET PO (08:07)
--- NOTE | 2022-08-21 11:37 | PCCCNOTE ---
On 08/21/22, the student, [Ellie Bernal ], provided care and completed [facility] documentation on this patient. I have reviewed the student's documentation and agree with the findings.
[2022-08-21] MEDS: CYCLOBENZAPRINE HCL 10 MG TABLET PO (12:07)
--- NOTE | 2022-08-21 12:30 | PM.IMPN ---
Progress Note: A&P Assessment and Plan (1) Sepsis: Qualifiers: Sepsis acute organ dysfunction status: without acute organ dysfunction Sepsis type: sepsis due to unspecified organism Qualified Code(s): A41.9 - Sepsis, unspecified organism Code(s): A41.9 - Sepsis, unspecified organism Status: Acute Assessment and Plan: sepsis criteria with leukocytosis, tachycardia and lactic acidosis. Source of infection acute diverticulitis and possible infected kidney stone UA does appear to be infection, urine culture no grow noted Lactic acid 2.9 on admission currently 0.9 Cystoscopy preformed on 08/20/22, with stent placement Urology consulted Fluids given in the ED Zosyn changed to Cipro Flagyl Blood culture NGTD Trend labs (2) Hydronephrosis with obstructing calculus: Code(s): N13.2 - Hydronephrosis with renal and ureteral calculous obstruction Status: Acute Assessment and Plan: CT shows stones in the proximal left ureter with mild left hydronephrosis Trend urine output Urology consulted thank you for your help adjust therapy as indicated (3) Sigmoid diverticulitis: Code(s): K57.32 - Diverticulitis of large intestine without perforation or abscess without bleeding Status: Acute Assessment and Plan: CT indicated diverticulitis of the sigmoid colon Zosyn changed cipro/flagyl Stable at this time Pain medications on board Continue to trend labs Currently on regular diet change to low fiber (4) Snoring: Code(s): R06.83 - Snoring Status: Acute Assessment and Plan: History of snoring, daytime fatigue, excessive daytime sleepiness and morbid obesity More than likely sleep apnea. Outpatient sleep study after discharge (5) Anemia: Qualifiers: Anemia type: unspecified type Qualified Code(s): D64.9 - Anemia, unspecified Code(s): D64.9 - Anemia, unspecified Status: Acute Assessment and Plan: H/H Stable at 7.2/24.5 down from admission of 10.2/33.0 Most likely related to fluids, fluids stopped at this time Continue to trend labs Anemia labs iron 22, TIBC 431, % saturation 5, B12 374 and folate 18.2 iron supplementation on board supplement as indicated (6) Leukocytosis: Qualifiers: Leukocytosis type: bandemia Qualified Code(s): D72.825 - Bandemia Code(s): D72.829 - Elevated white blood cell count, unspecified Status: Acute Assessment and Plan: WBC down, currently at 13.0 bands better currently at 0.5 Continue IV antibiotics for now Trend labs Blood cultures negative to date Urine negative to date Occult blood ordered Stool cultures (7) Hyperlipidemia: Qualifiers: Hyperlipidemia type: mixed hyperlipidemia Qualified Code(s): E78.2 - Mixed hyperlipidemia Code(s): E78.5 - Hyperlipidemia, unspecified Status: Acute Assessment and Plan: Lipid panel: Cholesterol 171, Triglycerides 118, LDL 110, HDL 34 start atorvastatin 20mg PO Daily Have patient follow up outpatient (8) Irritable bowel syndrome with constipation: Code(s): K58.1 - Irritable bowel syndrome with constipation Status: Acute Assessment and Plan: Abd CT- showed constipation Linzess ordered enema given miralax, colace on board PRN suppository ordered Plan Patient noted headache will add excedrin Constipation, added miralax and colace, PRN miralax Time Spent With Patient Time: 48 minutes Time with patient: Greater than 35 minutes Subjective Date/time seen: 08/21/22 1230 Interval history: 08/21/22 1230 Patient is doing ok. She still has not had a BM. She did state that she has taken Linzess in the past which has helped her. She also stated that she is having some nausea, and abdominal pain, which she stated she did
--- NOTE | 2022-08-21 12:30 | P.PNIM_ITS ---
Progress Note: A&P Assessment and Plan (1) Sepsis: Qualifiers: Sepsis acute organ dysfunction status: without acute organ dysfunction Sepsis type: sepsis due to unspecified organism Qualified Code(s): A41.9 - S epsis, unspecified organism Code(s): A41.9 - Sepsis, unspecified organism Status: Acute Assessment and Plan: * sepsis criteria with leukocytosis, tachycardia and lactic acidosis. * Source of infection acute diverticulitis and possible infected kidney stone * UA does appear to be infection, urine culture no grow noted * Lactic acid 2.9 on admission currently 0.9 * Cystoscopy preformed on 08/20/22, with stent placement * Urology consulted * Fluids given in the ED * Zosyn changed to Cipro Flagyl * Blood culture NGTD * Trend labs (2) Hydronephrosis with obstructing calculus: Code(s): N13.2 - Hydronephrosis with renal and ureteral calculous obstruction Status: Acute Assessment and Plan: * CT shows stones in the proximal left ureter with mild left hydronephrosis * Trend urine output * Urology consulted thank you for your help * adjust therapy as indicated (3) Sigmoid diverticulitis: Code(s): K57.32 - Diverticulitis of large intestine without perforation or abscess without bleeding Status: Acute Assessment and Plan: * CT indicated diverticulitis of the sigmoid colon * Zosyn changed cipro/flagyl * Stable at this time * Pain medications on board * Continue to trend labs * Currently on regular diet change to low fiber (4) Snoring: Code(s): R06.83 - Snoring Status: Acute Assessment and Plan: * History of snoring, daytime fatigue, excessive daytime sleepiness and morbid obesity * More than likely sleep apnea. * Outpatient sleep study after discharge (5) Anemia: Qualifiers: Anemia type: unspecified type Qualified Code(s): D64.9 - Anemia, unspecified Code(s): D64.9 - Anemia, unspecified Status: Acute Assessment and Plan: * H/H Stable at 7.2/24.5 * down from admission of 10.2/33.0 * Most likely related to fluids, fluids stopped at this time * Continue to trend labs * Anemia labs iron 22, TIBC 431, % saturation 5, B12 374 and folate 18.2 * iron supplementation on board * supplement as indicated (6) Leukocytosis: Qualifiers: Leukocytosis type: bandemia Qualified Code(s): D72.825 - Bandemia Code(s): D72.829 - Elevated white blood cell count, unspecified Status: Acute Assessment and Plan: * WBC down, currently at 13.0 * bands better currently at 0.5 * Continue IV antibiotics for now * Trend labs * Blood cultures negative to date * Urine negative to date * Occult blood ordered * Stool cultures (7) Hyperlipidemia: Qualifiers: Hyperlipidemia type: mixed hyperlipidemia Qualified Code(s): E78.2 - Mixed hyperlipidemia Code(s): E78.5 - Hyperlipidemia, unspecified Status: Acute Assessment and Plan: * Lipid panel: Cholesterol 171, Triglycerides 118, LDL 110, HDL 34 * start atorvastatin 20mg PO Daily * Have patient follow up outpatient (8) Irritable bowel syndrome with constipation: Code(s): K58.1 - Irritable bowel syndrome with constipation Status: Acute Assessment and Plan: * Abd CT- brianne
[2022-08-21] MEDS: LINACLOTIDE 145 MCG CAPSULE PO (14:48)
[2022-08-21] MEDS: metroNIDAZOLE 250 MG TABLET 500 MG PO ×2 (14:48→21:03)
[2022-08-21] MEDS: CIPROFLOXACIN 500 MG TAB PO (21:02)
[2022-08-21] MEDS: BISACODYL 10 MG SUPPOSITORY RECTAL (23:25)
[2022-08-22] VITALS: PULSE 73
[2022-08-22 03:17] VITALS: BP 130/87; PULSE 73; RESP 18; TEMP 36.6; O2SAT 98
[2022-08-22] MEDS: ACETAMINOPHEN/ASPIRIN/CAFFEINE 250-250-65 MG TABLET 1 TABLET PO ×2 (03:39→11:40)
[2022-08-22 04:00] VITALS: PULSE 71
[2022-08-22 05:18] LABS: Basophils Absolute Auto 0.1 K/mm3 (0.0-0.1); Basophils Percent Auto 0.6 % (0.2-1.2); Eosinophils Absolute Auto 0.1 K/mm3 (0-0.3); Eosinophils Percent Auto 1.8 % (0-4.4); Hematocrit 27.5 % (37.0-47.0); Immature Granulocyte Absolute 0.03 K/mm3 (0.00-0.031); Immature Granulocyte Percent A 0.4 % (0-0.5); Lymphocytes Absolute Auto 1.65 K/mm3 (0.9-3.2); Lymphocytes Percent Auto 21.3 % (18.3-44.2); Mean Corpuscular HGB Conc 29.1 g/dl (32-36); Mean Corpuscular Hemoglobin 22.9 pg (26-34); Mean Corpuscular Volume 78.8 fl (80-100); Mean Platelet Volume 10.6 fl (7.4-10.4); Monocytes Absolute Auto 0.8 K/mm3 (0.1-0.6); Monocytes Percent Auto 9.9 % (2.6-8.5); Neutrophils Absolute Auto 5.1 K/mm3 (1.3-6.7); Platelet Count Result 360 k/mm3 (150-375); Red Blood Count 3.49 M/mm3 (4.2-5.4); Red Cell Distribution Width 16.9 % (11.5-14.5); White Blood Count 7.8 K/mm3 (4.5-10.0)
[2022-08-22 05:29] LABS: Alanine Aminotransferase 29 U/L (6-35); Albumin Level 3.6 g/dL (3.5-5.1); Alkaline Phosphatase 77 U/L (38-126); Anion Gap 8 mmol/L (8-16); Aspartate Amino Transferase 33 U/L (14-36); Bilirubin,Total 0.3 mg/dL (0.2-1.3); Blood Urea Nitrogen 11 mg/dL (7-17); Calcium 8.4 mg/dL (8.4-10.2); Carbon Dioxide 28 mmol/L (22-30); Chloride 104 mmol/L (98-107); Estimated CRCL calculation 83 ml/min; Estimated Glomerular Filt Rate > 60; Glucose 87 mg/dL (65-110); Magnesium 1.9 mg/dL (1.6-2.3); Potassium 3.6 mmol/L (3.4-5.0); Sodium 140 mmol/L (137-145)
[2022-08-22 05:41] LABS: Platelet Estimate Adequate (Adequate)
[2022-08-22 05:42] LABS: Anisocytosis 2+ (NORMAL); Hypochromasia 2+ (NORMAL); Poikilocytosis 1+ (NORMAL)
[2022-08-22 05:43] LABS: Burr Cells 1+ (NORMAL)
[2022-08-22 05:44] LABS: Microcytosis 2+ (NORMAL); Schistocytes None Seen (NORMAL)
[2022-08-22] MEDS: LINACLOTIDE 145 MCG CAPSULE PO (05:50)
[2022-08-22] MEDS: metroNIDAZOLE 250 MG TABLET 500 MG PO (05:50)
[2022-08-22 07:52] VITALS: O2SAT 99
[2022-08-22] MEDS: ONDANSETRON INJ 4 MG/2 ML VIAL IV PUSH (07:54)
[2022-08-22 08:00] VITALS: PULSE 74
[2022-08-22] MEDS: oxyBUTYnin CHLORIDE 5 MG TABLET PO (08:00)
[2022-08-22] MEDS: ATORVASTATIN 20 MG TABLET PO (08:01)
[2022-08-22] MEDS: CIPROFLOXACIN 500 MG TAB PO (08:01)
[2022-08-22] MEDS: CHOLECALCIFEROL 400 UNITS TABLET (VIT D) PO (08:01)
[2022-08-22] MEDS: SERTRALINE HCL 50 MG TABLET PO (08:02)
[2022-08-22] MEDS: polyethylene glycoL 3350 17 GM POWD.PACK PO (08:02)
[2022-08-22] MEDS: FERROUS SULFATE 324 MG TABLET PO (08:02)
[2022-08-22] MEDS: DOCUSATE SODIUM 100 MG CAPSULE PO (08:02)
[2022-08-22] MEDS: atenoloL 25 MG TABLET PO (08:02)
[2022-08-22] MEDS: HYDROcodone/acetaminophen (*CRX) 5-325 MG TABLET 1 TAB PO (08:09)
--- NOTE | 2022-08-22 10:15 | P.DS_ITS ---
DS: Admitting Diagnosis Discharge Date 08/22/22 Admitting Diagnosis Diverticulitis, UPJ obstructing stone DS: Discharge Diagnosis Discharge Diagnosis (1) Sepsis: Qualifiers: Sepsis acute organ dysfunction status: without acute organ dysfunction Sepsis type: sepsis due to unspecified organism Qualified Code(s): A41.9 - Sepsis, unspecified organism Code(s): A41.9 - Sepsis, unspecified organism Status: Acute Assessment and Plan: * sepsis criteria with leukocytosis, tachycardia and lactic acidosis. * Source of infection acute diverticulitis and possible infected kidney stone * UA does appear to be infection, urine culture no grow noted * Lactic acid 2.9 on admission currently 0.9 * Cystoscopy preformed on 08/20/22, with stent placement * Urology consulted * Fluids given in the ED * Zosyn changed to Cipro Flagyl * Blood culture NGTD * Trend labs (2) Hydronephrosis with obstructing calculus: Code(s): N13.2 - Hydronephrosis with renal and ureteral calculous obstruction Status: Acute Assessment and Plan: * CT shows stones in the proximal left ureter with mild left hydronephrosis * Trend urine output * Urology consulted thank you for your help * adjust therapy as indicated (3) Sigmoid diverticulitis: Code(s): K57.32 - Diverticulitis of large intestine without perforation or abscess without bleeding Status: Acute Assessment and Plan: * CT indicated diverticulitis of the sigmoid colon * Zosyn changed cipro/flagyl * Stable at this time * Pain medications on board * Continue to trend labs * Currently on regular diet change to low fiber (4) Snoring: Code(s): R06.83 - Snoring Status: Acute Assessment and Plan: * History of snoring, daytime fatigue, excessive daytime sleepiness and morbid obesity * More than likely sleep apnea. * Outpatient sleep study after discharge (5) Anemia: Qualifiers: Anemia type: unspecified type Qualified Code(s): D64.9 - Anemia, unspecified Code(s): D64.9 - Anemia, unspecified Status: Acute Assessment and Plan: * H/H Stable at 8.0/27.5 * down from admission of 10.2/33.0 * Most likely related to fluids, fluids stopped at this time * Continue to trend labs * Anemia labs iron 22, TIBC 431, % saturation 5, B12 374 and folate 18.2 * iron supplementation on board * supplement as indicated (6) Leukocytosis: Qualifiers: Leukocytosis type: bandemia Qualified Code(s): D72.825 - Bandemia Code(s): D72.829 - Elevated white blood cell count, unspecified Status: Acute Assessment and Plan: * WBC down, currently at 7.8 * bands better currently at 0.5 * Continue IV antibiotics for now * Trend labs * Blood cultures negative to date * Urine negative to date * Occult blood ordered * Stool cultures (7) Hyperlipidemia: Qualifiers: Hyperlipidemia type: mixed hyperlipidemia Qualified Code(s): E78.2 - Mixed hyperlipidemia Code(s): E78.5 - Hyperlipidemia, unspecified Status: Acute Assessment and Plan: * Lipid panel: Cholesterol 171, Triglycerides 118, LDL 110, HDL 34 * start atorvastatin 20mg PO Daily * Have patient follow up outpatient (8) Irritable bowel syndrome with constipation: C
--- NOTE | 2022-08-22 10:15 | PM.DS ---
DS: Admitting Diagnosis Discharge Date 08/22/22 Admitting Diagnosis Diverticulitis, UPJ obstructing stone DS: Discharge Diagnosis Discharge Diagnosis (1) Sepsis: Qualifiers: Sepsis acute organ dysfunction status: without acute organ dysfunction Sepsis type: sepsis due to unspecified organism Qualified Code(s): A41.9 - Sepsis, unspecified organism Code(s): A41.9 - Sepsis, unspecified organism Status: Acute Assessment and Plan: sepsis criteria with leukocytosis, tachycardia and lactic acidosis. Source of infection acute diverticulitis and possible infected kidney stone UA does appear to be infection, urine culture no grow noted Lactic acid 2.9 on admission currently 0.9 Cystoscopy preformed on 08/20/22, with stent placement Urology consulted Fluids given in the ED Zosyn changed to Cipro Flagyl Blood culture NGTD Trend labs (2) Hydronephrosis with obstructing calculus: Code(s): N13.2 - Hydronephrosis with renal and ureteral calculous obstruction Status: Acute Assessment and Plan: CT shows stones in the proximal left ureter with mild left hydronephrosis Trend urine output Urology consulted thank you for your help adjust therapy as indicated (3) Sigmoid diverticulitis: Code(s): K57.32 - Diverticulitis of large intestine without perforation or abscess without bleeding Status: Acute Assessment and Plan: CT indicated diverticulitis of the sigmoid colon Zosyn changed cipro/flagyl Stable at this time Pain medications on board Continue to trend labs Currently on regular diet change to low fiber (4) Snoring: Code(s): R06.83 - Snoring Status: Acute Assessment and Plan: History of snoring, daytime fatigue, excessive daytime sleepiness and morbid obesity More than likely sleep apnea. Outpatient sleep study after discharge (5) Anemia: Qualifiers: Anemia type: unspecified type Qualified Code(s): D64.9 - Anemia, unspecified Code(s): D64.9 - Anemia, unspecified Status: Acute Assessment and Plan: H/H Stable at 8.0/27.5 down from admission of 10.2/33.0 Most likely related to fluids, fluids stopped at this time Continue to trend labs Anemia labs iron 22, TIBC 431, % saturation 5, B12 374 and folate 18.2 iron supplementation on board supplement as indicated (6) Leukocytosis: Qualifiers: Leukocytosis type: bandemia Qualified Code(s): D72.825 - Bandemia Code(s): D72.829 - Elevated white blood cell count, unspecified Status: Acute Assessment and Plan: WBC down, currently at 7.8 bands better currently at 0.5 Continue IV antibiotics for now Trend labs Blood cultures negative to date Urine negative to date Occult blood ordered Stool cultures (7) Hyperlipidemia: Qualifiers: Hyperlipidemia type: mixed hyperlipidemia Qualified Code(s): E78.2 - Mixed hyperlipidemia Code(s): E78.5 - Hyperlipidemia, unspecified Status: Acute Assessment and Plan: Lipid panel: Cholesterol 171, Triglycerides 118, LDL 110, HDL 34 start atorvastatin 20mg PO Daily Have patient follow up outpatient (8) Irritable bowel syndrome with constipation: Code(s): K58.1 - Irritable bowel syndrome with constipation Status: Acute Assessment and Plan: Abd CT- showed constipation Linzess ordered enema given miralax, colace on board PRN suppository ordered Noted BM on 08/20/22 DS: Summary Hospital Course Hospital Course: Patient is a 42-year-old female with past medical history of obesity, hypertension, kidney stones and asthma who presented the ED with complaints of abdominal pain. Upon arrival to the ED CT of the abdomen pelvis showed a 6 mm left UPJ stone causing obstructive uropathy. Urology was consulted
[2022-08-22] MEDS: CYCLOBENZAPRINE HCL 10 MG TABLET PO (11:41)
== END 2022-08-22 12:45 | disposition home or self-care (01) | DRG 244 ==
LOC: ANHED 23:28 → ANH2MED 23:37
PROVIDERS: Urology; Admitting Provider Internal Medicine; Emergency Provider Physician Assistant; Visit Provider Nurse Practitioner
PROC: 0T778DZ Dilation of Left Ureter with Intraluminal Device, Via Natural or Artificial Opening Endoscopic (ICD-10-PCS; CPT 52352; principal; 2022-08-19 09:30)
DX: K57.32 Diverticulitis of large intestine without perforation or abscess without bleeding (principal); N13.2 Hydronephrosis with renal and ureteral calculous obstruction; G47.30 Sleep apnea, unspecified; E66.9 Obesity, unspecified; Z68.33 Body mass index [BMI] 33.0-33.9, adult; D64.9 Anemia, unspecified; D72.829 Elevated white blood cell count, unspecified; E78.2 Mixed hyperlipidemia; K58.1 Irritable bowel syndrome with constipation; I10 Essential (primary) hypertension; J45.909 Unspecified asthma, uncomplicated; F41.8 Other specified anxiety disorders; Z87.891 Personal history of nicotine dependence
CPT/HCPCS: 36415; 71045; 74177; 80053; 80061; 81001; 81025; 82274; 82607; 82728; 82746; 83540; 83550; 83605; 83690; 83735; 84466; 84484; 85025; 87040; 87086; 87088; 87177; 87209; 93005; 96361; 96365; 96375; 96376; 99285; A9270; C1758; C1769; C2617; G0378; G0379; J1100; J1170; J1200; J2250; J2270; J2405; J2543; J2704; J3010; J7030; J7120; Q9967

== ENCOUNTER 2022-12-30 16:23 | Emergency (ER) | payer OTHER, SELFPAY ==
[2022-12-30 16:30] VITALS: BP 127/90; PULSE 87; RESP 18; TEMP 36.2; O2SAT 98
[2022-12-30 16:40] VITALS: BP 127/90; PULSE 87; RESP 18; TEMP 36.2; O2SAT 98
--- NOTE | 2022-12-30 17:09 | ED.URI ---
HPI - URI/Sore Throat General Chief Complaint: Upper Respiratory Infection Stated Complaint: cough,sore throat,weak body Source: patient and family Mode of arrival: ambulatory Limitations: no limitations History of Present Illness HPI Narrative: 42-year-old female presents to [facility] with complaints of sore throat, chest congestion, chest tightness, productive cough of yellow-colored phlegm, body aches and chills for the past 4-5 days. Patient is an ex-smoker. Patient has been taking vcif-led-yklmqgo DayQuil with minimal relief. Patient reports that her youngest child was recently ill with similar symptoms. Patient reports that she does have history of bronchitis. Patient reports that she did travel to [place] 3 weeks ago. MD elicited complaint: cough, rhinorrhea and nasal congestion Onset (ago): day(s) (4-5) Able to tolerate fluids by mouth: Yes Context: sick contacts Treatments prior to arrival: cold medicine Related Data Home Medications Medication Instructions Recorded Confirmed cholecalciferol (vitamin D3) 10 10 mcg PO DAILY 02/04/22 12/30/22 mcg (400 unit) tablet (Vitamin D3) sertraline 25 mg tablet 50 mg PO DAILY 02/04/22 12/30/22 [id number]-[id number] 1 tablet PO DIRECTED 12/30/22 12/30/22 50 mg-325 mg-40 mg tablet oxybutynin chloride 5 mg tablet 5 mg PO DIRECTED 12/30/22 12/30/22 pantoprazole 40 mg tablet,delayed 40 mg PO DIRECTED 12/30/22 12/30/22 release tamsulosin 0.4 mg capsule 0.4 mg PO DIRECTED 12/30/22 12/30/22 Allergies Allergy/AdvReac Type Severity Reaction Status Date / Time latex Allergy Unknown Rash Verified 12/30/22 16:36 adhesive Allergy Unknown Verified 12/30/22 16:36 nicotine AdvReac Mild Rash=Patch Verified 12/30/22 16:36 Review of Systems Constitutional: Constitutional: Reports chills, Denies fatigue, Denies fever(s) and Denies weakness ENT: Denies dizziness, Denies epistaxis, Reports nasal congestion and Denies sore throat Respiratory: Respiratory: Reports chest congestion, Reports cough, Denies dyspnea and Reports wheezing Gastrointestinal: Gastrointestinal: Denies diarrhea, Denies nausea and Denies vomiting Musculoskeletal: Musculoskeletal: Denies arthralgias and Denies joint swelling Integumentary/Breasts: Skin/Breast: Denies erythema, Denies rash and Denies skin ulcer Neurologic: Denies dizziness, Denies syncope and Denies headache(s) [facility] Past Medical History Medical History Anxiety and depression Calculus of proximal left ureter Chronic headaches Claustrophobia Essential hypertension Irritable bowel syndrome with constipation Ischemic colitis (~2011) Left knee injury Tachycardia Tear of PCL (posterior cruciate ligament) of knee Surgical History Surgical History H/O section Family History Family History Grandparent Arthritis Heart disease Hypertension Mother , At age 52 Cerebrovascular accident, Onset Age: 52 Depression HLD (hyperlipidemia) Alcoholism Father , 72 years old Depression COPD (chronic obstructive pulmonary disease) COVID-19 Other Diabetes mellitus Social History Social History Social History: She lives at home with her for younger children. She has 2 children age 20 and 19 and a moved out. She used to smoke a pack of cigarettes per day. She started smoking at age 13 and quit smoking in 2020. She only drinks alcohol about once a year. She denies illicit substance use. 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 Code status: Full code Surrogate decision maker: Alee Garcia (grandmother) Smoking packs per day: 1 Smoking cigarettes per day: 20.0 Years smoked: 27 Smoking pack-years: 27.00 Smoking status: Former smoker
== END 2022-12-30 17:15 | disposition home or self-care (01) ==
PROVIDERS: Emergency Provider Nurse Practitioner Family; PCP Nurse Practitioner Family
DX: J40 Bronchitis, not specified as acute or chronic (principal); Z20.822 Contact with and (suspected) exposure to COVID-19; Z87.891 Personal history of nicotine dependence; I10 Essential (primary) hypertension; F41.9 Anxiety disorder, unspecified; F32.A Depression, unspecified
CPT/HCPCS: 87081; 87426; 87880; 99213; C9803; G0463

== ENCOUNTER 2023-01-31 08:16 | Emergency (ER) | payer OTHER, SELFPAY ==
--- NOTE | 2023-01-31 08:20 | ED.URI ---
HPI - URI/Sore Throat General Chief Complaint: Upper Respiratory Infection Stated Complaint: aches/headache/throat Time Seen by Provider: 01/31/23 08:50 Source: patient and RN notes reviewed Mode of arrival: ambulatory Limitations: no limitations History of Present Illness HPI Narrative: 42-year-old female presents with concern for fever, headache, body aches, sore throat. Reports symptoms started about 2 days ago. Reports she has had a cough and nasal congestion for several weeks. Reports exposure to COVID at work. MD elicited complaint: sore throat Related Data Home Medications Medication Instructions Recorded Confirmed cholecalciferol (vitamin D3) 10 10 mcg PO DAILY 02/04/22 01/31/23 mcg (400 unit) tablet (Vitamin D3) sertraline 25 mg tablet 50 mg PO DAILY 02/04/22 01/31/23 [id number]-qaqjiwqnjsaks-pwehkcqb 1 tablet PO DIRECTED 12/30/22 01/31/23 50 mg-325 mg-40 mg tablet oxybutynin chloride 5 mg tablet 5 mg PO DIRECTED 12/30/22 01/31/23 pantoprazole 40 mg tablet,delayed 40 mg PO DIRECTED 12/30/22 01/31/23 release tamsulosin 0.4 mg capsule 0.4 mg PO DIRECTED 12/30/22 01/31/23 Allergies Allergy/AdvReac Type Severity Reaction Status Date / Time latex Allergy Unknown Rash Verified 01/31/23 08:25 adhesive Allergy Unknown Verified 01/31/23 08:25 nicotine AdvReac Mild Rash=Patch Verified 01/31/23 08:25 Review of Systems Review of Systems: CONSTITUTIONAL: Reports malaise, fever. EYES: Denies visual changes, redness, or discharge. ENT: Reports rhinorrhea, congestion, and sore throat. CARDIOVASCULAR: Denies chest pain, palpitations, or edema. RESPIRATORY: Reports cough. Denies dyspnea. GASTROINTESTINAL: Denies abdominal pain, nausea, vomiting, diarrhea SKIN: Denies rash or itching. MUSCULOSKELETAL: Reports myalgia. NEUROLOGIC: Reports headache. All systems reviewed & are unremarkable except as noted in HPI and below PMFSH Past Medical History Medical History Anxiety and depression Calculus of proximal left ureter Chronic headaches Claustrophobia Essential hypertension Irritable bowel syndrome with constipation Ischemic colitis (~2011) Left knee injury Tachycardia Tear of PCL (posterior cruciate ligament) of knee Surgical History Surgical History H/O section Family History Family History Grandparent Arthritis Heart disease Hypertension Mother , At age 52 Cerebrovascular accident, Onset Age: 52 Depression HLD (hyperlipidemia) Alcoholism Father , 72 years old Depression COPD (chronic obstructive pulmonary disease) COVID-19 Other Diabetes mellitus Social History Social History Social History: She lives at home with her for younger children. She has 2 children age 20 and 19 and a moved out. She used to smoke a pack of cigarettes per day. She started smoking at age 13 and quit smoking in 2020. She only drinks alcohol about once a year. She denies illicit substance use. 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 Code status: Full code Surrogate decision maker: Alee Garcia (grandmother) Smoking packs per day: 1 Smoking cigarettes per day: 20.0 Years smoked: 27 Smoking pack-years: 27.00 Smoking status: Former smoker Tobacco type: cigarettes Smoking end date: 06/10/21 Alcohol intake: current Substance use: never Substance use type: does not use Lack of Transportation: No Lack of Food: Sometimes True Current Housing: I Have Housing Concerned About Future Housing: No Difficulty Paying Gas/Electric Bills: No Difficulty Paying for Meds: No Currently Unemployed: No Education: Trade/Vocational Certificate Difficulty w/ Childcare or Family Care: No Living arrangeme
[2023-01-31 08:25] VITALS: BP 129/89; PULSE 92; RESP 14; TEMP 35.8; O2SAT 96
== END 2023-01-31 09:05 | disposition home or self-care (01) ==
PROVIDERS: Emergency Provider Nurse Practitioner; PCP Nurse Practitioner Family
DX: J02.0 Streptococcal pharyngitis (principal); Z20.822 Contact with and (suspected) exposure to COVID-19; Z87.891 Personal history of nicotine dependence; I10 Essential (primary) hypertension; F41.9 Anxiety disorder, unspecified; F32.A Depression, unspecified
CPT/HCPCS: 87426; 87804; 87880; 99213; C9803; G0463

== ENCOUNTER 2023-03-08 16:11 | Emergency (ER) | payer OTHER, SELFPAY ==
[2023-03-08 16:20] VITALS: BP 119/94; PULSE 95; RESP 18; TEMP 36.6; O2SAT 98
--- NOTE | 2023-03-08 16:41 | ED.URI ---
HPI - URI/Sore Throat General Chief Complaint: Upper Respiratory Infection Stated Complaint: Sore Throat Time Seen by Provider: 03/08/23 16:41 Source: patient, RN notes reviewed and old records reviewed Mode of arrival: ambulatory Limitations: no limitations History of Present Illness HPI Narrative: 42 year old female who presents to the [facility] care with complaints of sore throat which started today. Patient reports that she had a left over [place] that she took for her pain. Patient reports no ear pain, no sinus congestion or drainage or sinus pain. Patient reports that she has no cough, shortness of breath or any known fevers. MD elicited complaint: cough and sore throat Onset (ago): day(s) (today) Pain scale (0-10): 5 Able to tolerate fluids by mouth: Yes Treatments prior to arrival: other (took left over [place]) Related Data Home Medications Medication Instructions Recorded Confirmed cholecalciferol (vitamin D3) 10 10 mcg PO DAILY 02/04/22 03/08/23 mcg (400 unit) tablet (Vitamin D3) sertraline 25 mg tablet 50 mg PO DAILY 02/04/22 03/08/23 [id number]-[id number]-[id number] 1 tablet PO DIRECTED 12/30/22 03/08/23 50 mg-325 mg-40 mg tablet oxybutynin chloride 5 mg tablet 5 mg PO DIRECTED 12/30/22 03/08/23 pantoprazole 40 mg tablet,delayed 40 mg PO DIRECTED 12/30/22 03/08/23 release tamsulosin 0.4 mg capsule 0.4 mg PO DIRECTED 12/30/22 03/08/23 cyclobenzaprine 10 mg tablet See Rx Instructions .Route .COMPLEX 03/08/23 03/08/23 Allergies Allergy/AdvReac Type Severity Reaction Status Date / Time latex Allergy Unknown Rash Verified 03/08/23 16:46 adhesive Allergy Unknown Verified 03/08/23 16:46 nicotine AdvReac Mild Rash=Patch Verified 03/08/23 16:46 Review of Systems Review of Systems: CONSTITUTIONAL: Denies malaise, chills, sweats, or fever. EYES: Denies visual changes, redness, or discharge. ENT: Reports no rhinorrhea, congestion, sinus pain, otalgia and positive for sore throat. CARDIOVASCULAR: Denies chest pain, palpitations, or edema. RESPIRATORY: Reports no cough.? Denies dyspnea. GASTROINTESTINAL: Denies abdominal pain, nausea, vomiting, diarrhea SKIN: Denies rash or itching. MUSCULOSKELETAL: Denies myalgia. NEUROLOGIC: Denies headache. All systems reviewed & are unremarkable except as noted in HPI and below PMFSH Past Medical History Medical History (Updated 03/11/23 @ 08:56 by Carol Mcdaniel NP) Anxiety and depression Calculus of proximal left ureter Chronic headaches Claustrophobia Essential hypertension Irritable bowel syndrome with constipation Ischemic colitis (~2011) Left knee injury Tachycardia Tear of PCL (posterior cruciate ligament) of knee Surgical History Surgical History (Updated 03/11/23 @ 08:56 by Carol Mcdaniel NP) H/O section History of tubal ligation Family History Family History Grandparent Arthritis Heart disease Hypertension Mother , At age 52 Cerebrovascular accident, Onset Age: 52 Depression HLD (hyperlipidemia) Alcoholism Father , 72 years old Depression COPD (chronic obstructive pulmonary disease) COVID-19 Other Diabetes mellitus Social History Social History Social History: She lives at home with her for younger children. She has 2 children age 20 and 19 and a moved out. She used to smoke a pack of cigarettes per day. She started smoking at age 13 and quit smoking in 2020. She only drinks alcohol about once a year. She denies illicit substance use. 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 Code status: Full code Surrogate decision maker: Alee Garcia (grandmother) Smoking packs per day: 1 Smoking cigarettes per day: 20.0 Years smoked: 27 Smoking pack-years: 27.00 Smoking status: Former smoker Tobacco type: cigarettes Smoking end
== END 2023-03-08 17:10 | disposition home or self-care (01) ==
PROVIDERS: Emergency Provider Registered Nurse; PCP Nurse Practitioner Family
DX: J02.9 Acute pharyngitis, unspecified (principal); Z87.891 Personal history of nicotine dependence; I10 Essential (primary) hypertension; F41.9 Anxiety disorder, unspecified; F32.A Depression, unspecified
CPT/HCPCS: 87081; 87880; 99213; G0463